=== PATIENT | female | born 1935 | race African-American/Black ===

== ENCOUNTER 2021-07-05 01:25 | Inpatient (IN) | payer MEDICARE, OTHER ==
[~2021-07-05] VITALS: Ht 162.6 cm; Wt 54.9 kg
--- NOTE | 2021-07-05 01:32 | NUR ---
BIB [facility] FROM [facility] C/O SOB AND FEELING WARM. PT IS NON VERBAL. 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 PATIENT NON VERBAL, AND 95% ON ROOM AIR. PLACED PATIENT IN BED 06 ON MONITOR AND POX.
--- NOTE | 2021-07-05 01:33 | NUR ---
PT AWAKE AND NONVERBAL. PT NOTED WITH GTUBE TO LLQ; INTACT. F/C INTACT. WOUND VAC TO RIGHT LOWER BACK AND DRAINING.
--- NOTE | 2021-07-05 01:40 | NUR ---
ER AT BEDSIDE FOR EVAL
--- NOTE | 2021-07-05 01:47 | NUR ---
EMT AT BEDSIDE FOR EKG
--- NOTE | 2021-07-05 01:55 | NUR ---
ER ASSEMBLER ADJUSTER @ BEDSIDE
--- NOTE | 2021-07-05 01:55 | NUR ---
BLOOD COLLECTED AND SENT TO LAB
[2021-07-05] MEDS ORDERED: VANCOMYCIN 1 GM in IV D5W 250 ML IV ONE (02:00)
[2021-07-05] MEDS ORDERED: IV NS 0.9% 2,000 ML IV ONE (02:00)
[2021-07-05] MEDS ORDERED: CEFEPIME 1 GM in IV D5W 50 ML IV ONE (02:00)
[2021-07-05] MEDS ORDERED: ACETAMINOPHEN 650 MG/SUPP.RECT RC ONE ×2 (02:00→02:01)
--- NOTE | 2021-07-05 02:00 | NUR ---
R HAND #20G S/L; PATENT AND INTACT. COVID ANTIGEN SWAB COLLECTED AND SENT TO LAB
--- NOTE | 2021-07-05 02:00 | NUR ---
MRSA SWAB COLLECTED AND SENT TO LAB. PATIENT'S BELONGINGS LIST DONE.
[2021-07-05] MEDS ORDERED: CEFEPIME 1 GM VIAL ONE (02:01)
--- NOTE | 2021-07-05 02:01 | NUR ---
SET O TYPE OPERATOR AT PT'S BEDSIDE
[2021-07-05 02:27] LABS: CALCIUM, SERUM 9.2 mg/dL (8.5-10.1); CARBON DIOXIDE 29 mmol/L (21-32); CHLORIDE 110 mmol/L (98-107); CREATININE 0.5 mg/dL (0.6-1.3); GLUCOSE 147 mg/dL (74-106); POTASSIUM 4.8 mmol/L (3.5-5.1); SODIUM SERUM 147 mmol/L (136-145); UREA NITROGEN, BLOOD 27 mg/dL (7-18)
--- NOTE | 2021-07-05 02:29 | NUR ---
URINE COLLECTED AND SENT TO LAB
[2021-07-05] MEDS ORDERED: VANCOMYCIN 1 GM VIAL ONE (02:30)
--- NOTE | 2021-07-05 02:39 | NUR ---
BM NOTED. ADLS DONE; PT KEPT CLEAN AND DRY.
[2021-07-05 02:41] LABS: ALANINE AMINOTRANSFERASE 64 U/L (12-78); ALBUMIN 1.9 g/dL (3.4-5.0); ALKALINE PHOSPHATASE 137 U/L (46-116); ASPARTATE AMINOTRANSFERASE 67 U/L (15-37); BASOPHILS # (AUTO) 0.1 K/uL (0.0-0.2); BASOPHILS % (AUTO) 0.7 % (0.0-2.0); BILIRUBIN,DIRECT 0.1 mg/dL (0.0-0.2); BILIRUBIN,TOTAL 0.3 mg/dL (0.2-1.0); EOSINOPHILS % (AUTO) 1.6 % (0.0-6.0); HEMATOCRIT 29 % (33-45); HEMOGLOBIN 8.8 g/dL (11.5-14.8); LYMPHOCYTES # (AUTO) 1.9 K/uL (0.8-4.8); LYMPHOCYTES % (AUTO) 12.5 % (20.0-44.0); MEAN CORPUSCULAR HGB CONC 30 g/dl (31.0-36.0); MEAN CORPUSCULAR VOLUME 69 fL (82-100); MONOCYTES # (AUTO) 1.1 K/uL (0.1-1.30); MONOCYTES % (AUTO) 7.6 % (2.0-12.0); NEUTROPHILS # (AUTO) 11.6 K/uL (1.8-8.9); NEUTROPHILS % (AUTO) 77.6 % (43.0-81.0); PLATELET COUNT (AUTO) 758 K/uL (150-450); RED BLOOD CELL COUNT(AUTO) 4.24 MIL/uL (4.0-5.2); TOTAL PROTEIN, SERUM 8.2 g/dL (6.4-8.2); WHITE BLOOD COUNT (AUTO) 14.9 K/uL (4.3-11.0)
--- NOTE | 2021-07-05 02:41 | NUR ---
COVID SWAB DONE AND SENT TO LAB
[2021-07-05 03:25] LABS: BILIRUBIN,URINE NEGATIVE (NEGATIVE); COLOR,URINE YELLOW (YELLOW); LEUKOCYTE ESTERASE ,URINE LARGE (NEGATIVE); NITRITE, URINE POSITIVE (NEGATIVE); PH,URINE 5.5 (5.0-8.0); PROTEIN,URINE 100 mg/dl (NEGATIVE); UGLUCOSE NEGATIVE (NEGATIVE)
--- NOTE | 2021-07-05 04:47 | NUR ---
RN NOTE REPORT RECEIVED BY JOYCE JIN FOR COLTEN.
--- NOTE | 2021-07-05 04:48 | NUR ---
REPORT GIVEN TO SENG FOR COLTEN
[2021-07-05 05:15] VITALS: BP 129/67
--- NOTE | 2021-07-05 05:15 | NUR ---
RN NOTE PT TRANSFERRED FROM ER VIA GURNEY. PT IS ON ROOM AIR SHOWING NO S/S OF RESP DISTRESS/SOB. BREATHING EVEN AND UNLABORED. PT IS NON-VERBAL. ON MATRIX INSPECTOR SHOWING SINUS ARRHYTHMIA WITH PVC'S. HITCHCOCK CATH AND WOUND EVAC NOTED. IV ACCESS NOTED ON RIGHT HAND #20. LINE FLUSHED, PATENT, AND INTACT WITH NO SIGNS OF INFILTRATION. ALL SAFETY MEASURES IMPLEMENTED. WILL CONTINUE TO MONITOR AND ASSESS FOR ANY CHANGES.
--- NOTE | 2021-07-05 05:16 | NUR ---
PT TRANSFERRED TO [facility] VIA ACLS PROTOCOL. VSS. PT TOLERATED TRANSFER WELL.
[2021-07-05] MEDS ORDERED: ONDANSETRON HCL/PF 4 MG/2 ML VIAL IVP PRN (06:30)
[2021-07-05] MEDS ORDERED: ACETAMINOPHEN 325 MG TABLET PO PRN (06:30)
[2021-07-05] MEDS ORDERED: ZOLPIDEM TARTRATE 5 MG TABLET PO PRN (06:30)
[2021-07-05] MEDS ORDERED: Z GUARD REMEDY 4 OZ OINT TP PRN (06:30)
[2021-07-05] MEDS ORDERED: MAGNESIUM HYDROXIDE 30 ML UDC PO PRN (06:30)
[2021-07-05] MEDS ORDERED: MAG HYDROX/AL HYDROX/SIMETH 30 ML UDC PO PRN (06:30)
[2021-07-05] MEDS: PANTOPRAZOLE 40 MG TABLET.DR PO SCH (07:30)
[2021-07-05 08:00] VITALS: BP 97/54
[2021-07-05] MEDS ORDERED: AMIN30LI2 GT (08:03)
[2021-07-05] MEDS ORDERED: APIX2.5T GT (08:03)
[2021-07-05] MEDS ORDERED: METO25TA3 GT (08:03)
[2021-07-05] MEDS ORDERED: ASCO-495 GT (08:03)
[2021-07-05] MEDS ORDERED: ACET650T10 GT (08:03)
[2021-07-05] MEDS ORDERED: ALBU2.5V13 IH (08:03)
[2021-07-05] MEDS ORDERED: NUTR1PAC14 GT (08:03)
[2021-07-05] MEDS ORDERED: MULT-754 GT (08:03)
[2021-07-05] MEDS ORDERED: ACET650S11 RC (08:03)
[2021-07-05] MEDS ORDERED: FERR300L GT (08:03)
[2021-07-05] MEDS ORDERED: LEVO25TA9 GT (08:03)
--- NOTE | 2021-07-05 08:06 | NUR ---
RN OPENING NOTE RECEIVED PATIENT RESTING IN BED. PT IS ON ROOM AIR SHOWING NO S/S OF RESP DISTRESS/SOB. BREATHING EVEN AND UNLABORED. PT IS NON-VERBAL. ON TUTORING MANAGER . HITCHCOCK CATH AND WOUND EVAC NOTED. IV ACCESS NOTED ON RIGHT HAND #20. LINE FLUSHED, PATENT, AND INTACT WITH NO SIGNS OF INFILTRATION. ALL SAFETY MEASURES IMPLEMENTED. CALL LIGHT WITHIN REACH, 2 SIDE RAILS UP, BED LOCKED IN THE LOWEST POSITION.
[2021-07-05 08:45] LABS: BACTERIA,URINE 3+ /HPF (None Seen); RBC,URINE 51-80 /HPF (0-2); SQUAMOUS EPITHELIAL CELL,UR Few /HPF (None Seen); WBC,URINE 51-80 /HPF (0-3)
[2021-07-05 09:16] LABS: BAND % (MANUAL) 2 % (0.0-5.0); EOSINOPHILS % (MANUAL) 1 % (0-4); LYMPHOCYTES % (MANUAL) 16 % (16-48); MONOCYTES % (MANUAL) 9 % (0-11.0); NEUTROPHILS % (MANUAL) 72 (42-76)
[2021-07-05] MEDS: CEFEPIME 2 GM in IV D5W 100 ML IV SCH ×2 (10:24→20:52)
--- NOTE | 2021-07-05 10:26 | NUR ---
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 RECOMMENDATIONS MADE FOR SKIN PROTECTION. DISCUSSED WITH NURSING STAFF. SURGICAL AND DPM CONSULTS CALLED TO DR MALONE AND DR HAMPAPUR. PCAE IN AGREEMENT WITH PLAN OF CARE.
[2021-07-05] MEDS: ENOXAPARIN SODIUM 40 MG/0.4 ML DISP.SYRIN SQ SCH (10:27)
--- NOTE | 2021-07-05 11:48 | NUR ---
RN NOTE SPOKE WITH SNF REGARDING PATIENTS G TUBE FEEDING. PATIENT WAS RECEIVING ISOSOURCE 1.5 70ML/HR X 16. SPOKE WITH DIETARY FACILITY DOES NOT CARRY ISOSOURCE BUT IT CAN BE REPLACED WITH JEVITY 1.2 20ML/HR. MAKE PROVIDER LUIS INTERIANO AWARE, RECEIVED AUTHORIZATION TO PLACE ORDER. ORDER PLACED.
[2021-07-05 12:00] VITALS: BP 105/55
[2021-07-05] MEDS ORDERED: JEVITY 1.2 CAL 1,000 ML BOTTLE GT PRN (12:00)
[2021-07-05] MEDS ORDERED: ACETAMINOPHEN 650 MG/SUPP.RECT RC PRN (15:30)
[2021-07-05] MEDS ORDERED: ALBUTEROL SULFATE 8 GM HFA.AER.AD IH PRN (15:30)
[2021-07-05 16:00] VITALS: BP 105/56
[2021-07-05] MEDS: ARGININE/GLUTAMINE/CALCIUM BMB 1 EACH POWD.PACK GT SCH (17:00)
[2021-07-05] MEDS: PROSOURCE / PROSTAT (PYXIS) 30 ML UDC GT SCH ×2 (18:05→18:06)
[2021-07-05] MEDS: APIXABAN 2.5 MG TABLET GT SCH (18:05)
[2021-07-05] MEDS: JEVITY 1.2 CAL 1,000 ML BOTTLE GT SCH (18:07)
--- NOTE | 2021-07-05 19:22 | NUR ---
RN CLOSING NOTE RECEIVED PATIENT RESTING IN BED. PT IS ON ROOM AIR SHOWING NO S/S OF RESP DISTRESS/SOB. BREATHING EVEN AND UNLABORED. PT IS NON-VERBAL. ON ORTHOTIST/PROSTHETIST . HITCHCOCK CATH AND WOUND EVAC NOTED. IV ACCESS NOTED ON RIGHT HAND #20. LINE FLUSHED, PATENT, AND INTACT WITH NO SIGNS OF INFILTRATION. ALL SAFETY MEASURES IMPLEMENTED. CALL LIGHT WITHIN REACH, 2 SIDE RAILS UP, BED LOCKED IN THE LOWEST POSITION. WILL ENDORSE TO NIGHT NURSE FOR COLTEN
--- NOTE | 2021-07-05 19:34 | NUR ---
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 GIVEN TO PHARMACY TO REVIEW. RECOMMENDED FOR WOUND CARE NURSE TO REVIEW REGARDING APPROVAL TO USE.
--- NOTE | 2021-07-05 19:51 | NUR ---
RN NOTE RECEIVED PATIENT IN BED, AWAKE WITH EYES OPEN, NON-VERBAL. UNABLE TO FOLLOW COMMANDS. CALM. BREATHING EVEN AND UNLABORED. TOLERATING ROOM AIR. NO RESPIRATORY DISTRESS NOTED. SKIN WARM AND DRY, NOTED WITH LEFT UPPER ARM MIDLINE AND RIGHT HAND PERIPHERAL IV 20G. CURRENTLY INFUSING 0.45 NS AT 75 CC/HR. NO INFILTRATION NOTED. NOTED WITH TUBE FEEDING VIA PEG TUBE, INFUSING JEVITY AT 55 CC/HR. NO RESIDUAL. ELEVATED HOB TO 40 DEGREES. NOTED WITH INDWELLING HITCHCOCK CATHETER, INTACT. NO HEMATURIA NOTED. DRAINING YELLOW URINE. NO GRIMACE/MOANING NOTED. ASSISTED WITH REPOSITIONING. BED LOW, IN LOCKED POSITION, CALL LIGHT WITHIN REACH.
[2021-07-05 20:00] VITALS: BP 93/51
[2021-07-05] MEDS: IV 1/2NS 1000 ML 1,000 ML IV PRN (20:28)
[2021-07-05] MEDS: METOPROLOL SUCCINATE 25 MG TAB.SR.24H GT SCH (20:56)
[2021-07-05] MEDS: VANCOMYCIN 1 GM in IV D5W 250 ML IV SCH (23:12)
[2021-07-05] MEDS ORDERED: DAKINS QUARTER STRENGTH (0.125%) 480 ML BOTTLE ONE (23:41)
[2021-07-05] MEDS: DAKINS QUARTER STRENGTH (0.125%) 480 ML BOTTLE TOP SCH (23:42)
[2021-07-06] VITALS: BP 102/51
[2021-07-06 04:00] VITALS: BP 111/51
[2021-07-06] MEDS: IV 1/2NS 1000 ML 1,000 ML IV PRN ×2 (06:02→21:22)
[2021-07-06 07:01] LABS: BASOPHILS % (AUTO) 0.2 % (0.0-2.0); HEMATOCRIT 30 % (33-45); HEMOGLOBIN 8.7 g/dL (11.5-14.8); LYMPHOCYTES # (AUTO) 1.4 K/uL (0.8-4.8); LYMPHOCYTES % (AUTO) 9.9 % (20.0-44.0); MEAN CORPUSCULAR HGB CONC 29 g/dl (31.0-36.0); MEAN CORPUSCULAR VOLUME 70 fL (82-100); MONOCYTES # (AUTO) 0.9 K/uL (0.1-1.30); MONOCYTES % (AUTO) 6.5 % (2.0-12.0); NEUTROPHILS # (AUTO) 11.4 K/uL (1.8-8.9); NEUTROPHILS % (AUTO) 81.4 % (43.0-81.0); PLATELET COUNT (AUTO) 614 K/uL (150-450); RED BLOOD CELL COUNT(AUTO) 4.27 MIL/uL (4.0-5.2); WHITE BLOOD COUNT (AUTO) 13.9 K/uL (4.3-11.0)
[2021-07-06 07:23] LABS: ALANINE AMINOTRANSFERASE 54 U/L (12-78); ALBUMIN 1.6 g/dL (3.4-5.0); ALKALINE PHOSPHATASE 124 U/L (46-116); ASPARTATE AMINOTRANSFERASE 36 U/L (15-37); BILIRUBIN,DIRECT 0.1 mg/dL (0.0-0.2); BILIRUBIN,TOTAL 0.3 mg/dL (0.2-1.0); CALCIUM, SERUM 8.4 mg/dL (8.5-10.1); CARBON DIOXIDE 29 mmol/L (21-32); CHLORIDE 108 mmol/L (98-107); CREATININE 0.5 mg/dL (0.6-1.3); GLUCOSE 124 mg/dL (74-106); MAGNESIUM 2.4 mg/dL (1.8-2.4); PHOSPHORUS 3.9 mg/dL (2.5-4.9); POTASSIUM 3.8 mmol/L (3.5-5.1); SODIUM SERUM 143 mmol/L (136-145); UREA NITROGEN, BLOOD 21 mg/dL (7-18)
[2021-07-06 08:00] VITALS: BP 114/59
[2021-07-06] MEDS ORDERED: [UNRECOGNIZED DRUG - OTHER] XX SCH (09:00)
[2021-07-06] MEDS ORDERED: PROSTAT (PYXIS) 30 ML UDC GT SCH (09:00)
[2021-07-06] MEDS: MULTIVITAMINS,THERAGRAN 1 UDTAB TABLET GT SCH (09:14)
[2021-07-06] MEDS: ACETAMINOPHEN 650 MG/20.3 ML UDC GT SCH (09:14)
[2021-07-06] MEDS: ASCORBIC ACID 500 MG TABLET GT SCH (09:14)
[2021-07-06] MEDS: METOPROLOL SUCCINATE 25 MG TAB.SR.24H GT SCH ×2 (09:14→20:41)
[2021-07-06] MEDS: FERROUS SULFATE UDC 300 MG/5 ML UDC GT SCH (09:17)
[2021-07-06] MEDS: LEVOTHYROXINE SODIUM 88 MCG TABLET GT SCH (09:17)
[2021-07-06] MEDS: PANTOPRAZOLE 40 MG TABLET.DR PO SCH (09:17)
[2021-07-06] MEDS: DAKINS QUARTER STRENGTH (0.125%) 480 ML BOTTLE TOP SCH (09:18)
[2021-07-06] MEDS: CEFEPIME 2 GM in IV D5W 100 ML IV SCH ×2 (09:18→20:43)
[2021-07-06] MEDS: APIXABAN 2.5 MG TABLET GT SCH ×2 (09:20→17:58)
[2021-07-06] MEDS: ENOXAPARIN SODIUM 40 MG/0.4 ML DISP.SYRIN SQ SCH (09:21)
[2021-07-06] MEDS: ARGININE/GLUTAMINE/CALCIUM BMB 1 EACH POWD.PACK GT SCH ×2 (11:36→17:57)
[2021-07-06] MEDS: PROSOURCE / PROSTAT (PYXIS) 30 ML UDC GT SCH ×2 (11:36→17:57)
[2021-07-06 12:00] VITALS: BP 103/77
[2021-07-06 16:00] VITALS: BP 97/52
[2021-07-06] MEDS: JEVITY 1.2 CAL 1,000 ML BOTTLE GT SCH (19:05)
--- NOTE | 2021-07-06 19:29 | NUR ---
RN CLOSING NOTE PATIENT RESTING IN BED. ON ROOM AIR SHOWING NO S/S OF RESP DISTRESS. PT IS NON-VERBAL. ON [employer] STORAGE CLERK NOTED WITH ST/SR THIS SHIFT. HITCHCOCK CATH AND WOUND EVAC NOTED. IV ACCESS NOTED ON RIGHT HAND #20.AND JOSE MIDLINE 18 FLUSHED, PATENT, AND INTACT WITH NO SIGNS OF INFILTRATION. ALL SAFETY MEASURES IMPLEMENTED. DUE MEDICATIONS GIVEN, MORNING CARE RENDERED. NEEDS ATTENDED.
[2021-07-06 20:00] VITALS: BP 97/52
--- NOTE | 2021-07-06 20:22 | NUR ---
RN NOTE RECEIVED PATIENT IN BED, SLEEPING, AROUSABLE TO NAME AND TOUCH. NON-VERBAL, UNABLE TO FOLLOW COMMANDS. BREATHING EVEN AND UNLABORED. TOLERATING ROOM AIR. NO RESPIRATORY DISTRESS NOTED. SKIN WARM AND DRY. NOTED WITH LEFT UPPER ARM MIDLINE, INFUSING 0.4 NS AT 75 CC/HR. NO INFILTRATION NOTED. NOTED WITH RIGHT HAND PERIPHERAL IV 20G. NOTED WITH G-TUBE FEEDING OF JEVITY AT 55 CC/HR. NO RESIDUAL. HOB ELEVATED 40 DEGREES. NOTED WITH INDWELLING HITCHCOCK CATHETER, INTACT, NO HEMATURIA, DRAINING YELLOW URINE. NO FACIAL GRIMACE/MOANING. ASSISTED WITH TURNING AND REPOSITIONING. BED LOW, IN LOCKED POSITION, CALL LIGHT WITHIN EACH.
[2021-07-06] MEDS ORDERED: ENOXAPARIN SODIUM 40 MG/0.4 ML DISP.SYRIN SQ SCH (21:00)
[2021-07-06] MEDS: VANCOMYCIN 1 GM in IV D5W 250 ML IV SCH (23:46)
[2021-07-07] VITALS: BP 99/52
[2021-07-07 04:00] VITALS: BP 107/59
--- NOTE | 2021-07-07 07:23 | NUR ---
RN OPENING NOTES RECEIVED PATIENT IN BED, AWAKE, NON-VERBAL. NO SIGNS OF ACUTE DISTRESS NOTED. ON ROOM AIR, TOLERATING WELL, NO SOB NOTED, BREATHING EVEN AND UNLABORED. ON TELE MONITOR SHOWING CONTROLLED AFIB @97. WITH IV ACCESS ON JOSE MIDLINE, INTACT WITH 1/2 NS @75CC/HR RUNNING. WITH F/C INTACT, DRAINING CLEAR YELLOW URINE. G-TUBE INTACT AND PATENT, WITH GT FEEDING OF JEVITY @55ML/HR, TOLERATED WELL. ASPIRATIONS PRECAUTIONS OBSERVED. HOB ELEVATED AT ALL TIMES. SAFETY MEASURES IN PLACE. WILL CONTINUE TO MONITOR.
[2021-07-07 07:36] LABS: CALCIUM, SERUM 8.4 mg/dL (8.5-10.1); CARBON DIOXIDE 25 mmol/L (21-32); CHLORIDE 105 mmol/L (98-107); CREATININE 0.5 mg/dL (0.6-1.3); GLUCOSE 90 mg/dL (74-106); POTASSIUM 3.6 mmol/L (3.5-5.1); SODIUM SERUM 139 mmol/L (136-145); UREA NITROGEN, BLOOD 19 mg/dL (7-18)
[2021-07-07 08:00] VITALS: BP 99/58
[2021-07-07 08:04] LABS: BASOPHILS % (AUTO) 0.1 % (0.0-2.0); EOSINOPHILS % (AUTO) 2.4 % (0.0-6.0); HEMATOCRIT 26 % (33-45); HEMOGLOBIN 7.7 g/dL (11.5-14.8); LYMPHOCYTES # (AUTO) 1.5 K/uL (0.8-4.8); LYMPHOCYTES % (AUTO) 13.9 % (20.0-44.0); MEAN CORPUSCULAR HGB CONC 30 g/dl (31.0-36.0); MEAN CORPUSCULAR VOLUME 69 fL (82-100); MONOCYTES # (AUTO) 0.9 K/uL (0.1-1.30); NEUTROPHILS # (AUTO) 8.1 K/uL (1.8-8.9); NEUTROPHILS % (AUTO) 75.6 % (43.0-81.0); PLATELET COUNT (AUTO) 637 K/uL (150-450); RED BLOOD CELL COUNT(AUTO) 3.74 MIL/uL (4.0-5.2); WHITE BLOOD COUNT (AUTO) 10.7 K/uL (4.3-11.0)
[2021-07-07] MEDS: PANTOPRAZOLE 40 MG TABLET.DR PO SCH (08:56)
[2021-07-07] MEDS: LEVOTHYROXINE SODIUM 88 MCG TABLET GT SCH (08:57)
[2021-07-07] MEDS: ACETAMINOPHEN 650 MG/20.3 ML UDC GT SCH (08:57)
[2021-07-07] MEDS: MULTIVITAMINS,THERAGRAN 1 UDTAB TABLET GT SCH (08:57)
[2021-07-07] MEDS: APIXABAN 2.5 MG TABLET GT SCH ×2 (08:57→16:46)
[2021-07-07] MEDS: FERROUS SULFATE UDC 300 MG/5 ML UDC GT SCH (08:57)
[2021-07-07] MEDS: ASCORBIC ACID 500 MG TABLET GT SCH (08:58)
[2021-07-07] MEDS: ARGININE/GLUTAMINE/CALCIUM BMB 1 EACH POWD.PACK GT SCH ×2 (08:59→16:45)
[2021-07-07] MEDS: PROSOURCE / PROSTAT (PYXIS) 30 ML UDC GT SCH ×2 (08:59→16:45)
[2021-07-07] MEDS: METOPROLOL SUCCINATE 25 MG TAB.SR.24H GT SCH ×2 (08:59→21:00)
[2021-07-07] MEDS ORDERED: [UNRECOGNIZED DRUG - OTHER] XX SCH (09:00)
[2021-07-07] MEDS: CEFEPIME 2 GM in IV D5W 100 ML IV SCH ×2 (09:16→21:16)
[2021-07-07] MEDS: DAKINS QUARTER STRENGTH (0.125%) 480 ML BOTTLE TOP SCH (09:19)
[2021-07-07 12:00] VITALS: BP 99/54
[2021-07-07] MEDS: IV 1/2NS 1000 ML 1,000 ML IV PRN (14:02)
[2021-07-07] MEDS: JEVITY 1.2 CAL 1,000 ML BOTTLE GT SCH (14:07)
[2021-07-07 16:00] VITALS: BP 99/64
[2021-07-07] MEDS: [UNRECOGNIZED DRUG - OTHER] XX SCH (16:20)
[2021-07-07] MEDS: VANCOMYCIN 1 GM in IV D5W 250 ML IV SCH (17:16)
--- NOTE | 2021-07-07 18:56 | NUR ---
RN CLOSING NOTES PATIENT IN BED, ASLEEP.NO SIGNS OF ACUTE DISTRESS NOTED. REMAINS ON ROOM AIR, TOLERATING WELL, NO SOB NOTED, BREATHING EVEN AND UNLABORED. ON TELE MONITOR SHOWING CONTROLLED AFIB @98. WITH IV ACCESS ON JOSE MIDLINE, INTACT WITH 1/2 NS @75CC/HR RUNNING. WITH F/C INTACT, DRAINING CLEAR YELLOW URINE. G-TUBE INTACT AND PATENT, WITH GT FEEDING OF JEVITY @55ML/HR, TOLERATED WELL. WOUND TREATMENT DONE. TURNED AND REPOSITIONED. ASPIRATIONS PRECAUTIONS OBSERVED. HOB ELEVATED AT ALL TIMES. SAFETY MEASURES IN PLACE. WILL ENDORSE TO NEXT SHIFT.
--- NOTE | 2021-07-07 19:33 | NUR ---
RN NOTES RECEIVED PT FOR CONTINUITY OF CARE. PATIENT NON VERBAL, IN NO S/SX OF ACUTE DISTRESS AT THIS TIME; CURRENTLY ON ROOM AIR; WITH 02 SAT >95% AT THIS TIME. WITH IV ACCESS ON L UA MIDLINE#18 AND R HAND #20 BOTH PATENT, INTACT AND FLUSHING WELL; NO S/S OF INFECTION OR INFILTRATION. WITH IV FLUID RUNNING ORDERED. WITH GTUBE FEEDING RUNNING PRESCRIBED. WILL ENSURE SAFETY MEASURES WITHIN THE SHIFT. PATIENT BED ALARM IS ON. HEAD OF BED ELEVATED. BED IS LOCKED, IN LOWEST POSITION AND SIDE RAILS UP. CALL LIGHT WITHIN REACH OF THE PATIENT. APPLICABLE ISOLATION PRECAUTIONS IN PLACE. WILL CONTINUE TO MONITOR AND REASSESS FOR ANY CHANGES AND WILL CARRY OUT ANY ONGOING AND ACTIVE MD ORDER.
[2021-07-07 20:00] VITALS: BP 96/55
[2021-07-08] VITALS: BP 97/56
[2021-07-08 04:00] VITALS: BP 96/51
--- NOTE | 2021-07-08 04:00 | NUR ---
RN NOTES NO NOTED CHANGES IN PATIENT CONDITION AT THIS TIME; PATIENT VITALS STABLE, NO SIGNS OF ACUTE RESPIRATORY DISTRESS. AM PATIENT CARE RENDERED AND TURNING AND REPOSITIONING DONE Q2H.WILL CONTINUE TO MONITOR AND REASSESS FOR ANY CHANGES THROUGHOUT THE SHIFT.
--- NOTE | 2021-07-08 06:49 | NUR ---
RN CLOSING NOTE: PATIENT REMAINS IN ROOM IN NO SIGNS OF RESPIRATORY DISTRESS, PATIENT STILL ON ROOM AIR;TOLERATING WELL SATURATING @ >95% SP02. SAFETY MEASURES IMPLEMENTED, BED IN LOWEST POSITION, LOCKED, SIDE RAILS UP, CALL LIGHT WITHIN REACH. ALL NEEDS AND ORDERS ADDRESSED DURING THE SHIFT. IV ACCESS MAINTAINED INTACT, SECURED AND FLUSHING WELL. ALL DUE MEDS GIVEN ORDERED & SCHEDULED ; PATIENT TOLERATED WELL. PATIENT KEPT CLEAN AND COMFORTABLE WITHIN THE SHIFT. PATIENT ENDORSED TO INCOMING SHIFT RN WITH STABLE VITAL SIGN AND FOR CONTINUITY OF CARE.
[2021-07-08 08:00] VITALS: BP 90/50
--- NOTE | 2021-07-08 08:02 | NUR ---
RN OPENING NOTE Patient in bed, awake. A/O x 1, non-verbal. On room air, breathing evenly and unlabored. No SOB or s/s of distress noted. IV access on JOSE midline infusing NS at 75 ml/hr and Right hand #20, SL intact and patent. On tele monitoring showing Sinus tachycardia, HR 102. G-tube in place running Jevity at 55 cc/hr. Fox catheter in place draining to a yellow colored urine. Safety precautions in place: bed in low, locked position; siderails up x 2; call light within reach. Will continue to monitor.
[2021-07-08 08:14] LABS: BASOPHILS % (AUTO) 0.3 % (0.0-2.0); EOSINOPHILS % (AUTO) 3.2 % (0.0-6.0); HEMATOCRIT 25 % (33-45); HEMOGLOBIN 7.5 g/dL (11.5-14.8); LYMPHOCYTES # (AUTO) 1.5 K/uL (0.8-4.8); LYMPHOCYTES % (AUTO) 17.6 % (20.0-44.0); MEAN CORPUSCULAR HGB CONC 30 g/dl (31.0-36.0); MEAN CORPUSCULAR VOLUME 69 fL (82-100); MONOCYTES # (AUTO) 0.8 K/uL (0.1-1.30); NEUTROPHILS % (AUTO) 69.9 % (43.0-81.0); PLATELET COUNT (AUTO) 630 K/uL (150-450); RED BLOOD CELL COUNT(AUTO) 3.61 MIL/uL (4.0-5.2); WHITE BLOOD COUNT (AUTO) 8.7 K/uL (4.3-11.0)
[2021-07-08 08:46] LABS: CALCIUM, SERUM 7.8 mg/dL (8.5-10.1); CARBON DIOXIDE 26 mmol/L (21-32); CHLORIDE 107 mmol/L (98-107); CREATININE 0.5 mg/dL (0.6-1.3); GLUCOSE 105 mg/dL (74-106); POTASSIUM 3.3 mmol/L (3.5-5.1); SODIUM SERUM 142 mmol/L (136-145); UREA NITROGEN, BLOOD 20 mg/dL (7-18)
[2021-07-08] MEDS: PANTOPRAZOLE 40 MG TABLET.DR PO SCH (08:56)
[2021-07-08] MEDS: ASCORBIC ACID 500 MG TABLET GT SCH (08:56)
[2021-07-08] MEDS: FERROUS SULFATE UDC 300 MG/5 ML UDC GT SCH (08:56)
[2021-07-08] MEDS: LEVOTHYROXINE SODIUM 88 MCG TABLET GT SCH (08:56)
[2021-07-08] MEDS: MULTIVITAMINS,THERAGRAN 1 UDTAB TABLET GT SCH (08:56)
[2021-07-08] MEDS: ACETAMINOPHEN 650 MG/20.3 ML UDC GT SCH (08:57)
[2021-07-08] MEDS: APIXABAN 2.5 MG TABLET GT SCH ×2 (08:58→17:35)
[2021-07-08] MEDS: [UNRECOGNIZED DRUG - OTHER] XX SCH (09:00)
[2021-07-08] MEDS: METOPROLOL SUCCINATE 25 MG TAB.SR.24H GT SCH ×2 (09:00→21:00)
[2021-07-08] MEDS: PROSOURCE / PROSTAT (PYXIS) 30 ML UDC GT SCH ×2 (09:02→17:34)
[2021-07-08] MEDS: ARGININE/GLUTAMINE/CALCIUM BMB 1 EACH POWD.PACK GT SCH ×2 (09:02→17:35)
[2021-07-08] MEDS: CEFEPIME 2 GM in IV D5W 100 ML IV SCH ×2 (09:06→21:24)
[2021-07-08] MEDS: DAKINS QUARTER STRENGTH (0.125%) 480 ML BOTTLE TOP SCH (09:07)
[2021-07-08] MEDS ORDERED: POTASSIUM CHLORIDE 20 MEQ POWDER PACKET GT ONE ×2 (10:00→10:30)
[2021-07-08] MEDS: IV 1/2NS 1000 ML 1,000 ML IV PRN (10:17)
[2021-07-08] MEDS: JEVITY 1.2 CAL 1,000 ML BOTTLE GT SCH (12:52)
[2021-07-08] MEDS: VANCOMYCIN 1 GM in IV D5W 250 ML IV SCH (13:15)
[2021-07-08 16:00] VITALS: BP 92/56
[2021-07-08] MEDS: SOD FERRIC GLUC 125 MG in IV NS 0.9% 100 ML IV SCH (16:21)
--- NOTE | 2021-07-08 19:00 | NUR ---
MS RN CLOSING NOTE Patient in bed, resting comfortably. A/O x 1, non-verbal. Stable on room air, breathing evenly and unlabored. No SOB or s/s of distress noted. IV access on JOSE midline infusing NS at 75 ml/hr and Right hand #20, SL intact and patent. G-tube in place running Jevity at 55 cc/hr. Fox catheter in place draining to a yellow colored urine with an output of 1000 cc. Patient kept clean and dry. Due meds given. Wound care done, as ordered. Safety precautions maintained: bed in low, locked position; siderails up x 2; call light within reach. Will endorse to warehouse supervisor 3rd shift nurse for COLTEN.
--- NOTE | 2021-07-08 19:38 | NUR ---
RECEIVED PT FOR CONTINUITY OF CARE. PATIENT NON VERBAL, IN BED RESTING COMFORTABLY IN NO S/SX OF ACUTE DISTRESS AT THIS TIME; CURRENTLY ON ROOM AIR; WITH 02 SAT 95% AT THIS TIME. WITH IV ACCESS ON L UA MIDLINE#18 AND R HAND #20 BOTH PATENT, INTACT AND FLUSHING WELL; NO S/S OF INFECTION OR INFILTRATION. WITH IV FLUID RUNNING ORDERED. WITH GTUBE FEEDING RUNNING PRESCRIBED. WILL ENSURE SAFETY MEASURES WITHIN THE SHIFT. PATIENT BED ALARM IS ON. HEAD OF BED ELEVATED. BED IS LOCKED, IN LOWEST POSITION AND SIDE RAILS UP. CALL LIGHT WITHIN REACH OF THE PATIENT. APPLICABLE ISOLATION PRECAUTIONS IN PLACE. WILL CONTINUE TO MONITOR AND REASSESS FOR ANY CHANGES AND WILL CARRY OUT ANY ONGOING AND ACTIVE MD ORDER.
[2021-07-08 20:00] VITALS: BP 102/56
[2021-07-08 20:08] LABS: OCCULT BLOOD STOOL NEGATIVE (NEGATIVE)
[2021-07-09 04:00] VITALS: BP 115/55
[2021-07-09] MEDS: VANCOMYCIN 1 GM in IV D5W 250 ML IV SCH ×2 (05:43→23:20)
[2021-07-09] MEDS: IV 1/2NS 1000 ML 1,000 ML IV PRN (05:45)
--- NOTE | 2021-07-09 06:34 | NUR ---
RN CLOSING NOTE: PATIENT REMAINS IN ROOM IN NO SIGNS OF RESPIRATORY DISTRESS, PATIENT STILL ON ROOM AIR;TOLERATING WELL SATURATING @95% SP02. SAFETY MEASURES IMPLEMENTED, BED IN LOWEST POSITION, LOCKED, SIDE RAILS UP, CALL LIGHT WITHIN REACH. ALL NEEDS AND ORDERS ADDRESSED DURING THE SHIFT. IV ACCESS MAINTAINED INTACT, SECURED AND FLUSHING WELL. ALL DUE MEDS GIVEN ORDERED & SCHEDULED ; PATIENT TOLERATED WELL. PATIENT KEPT CLEAN AND COMFORTABLE WITHIN THE SHIFT. PATIENT ENDORSED TO INCOMING SHIFT RN WITH STABLE VITAL SIGN AND FOR CONTINUITY OF CARE.
[2021-07-09 07:13] LABS: BASOPHILS % (AUTO) 0.2 % (0.0-2.0); EOSINOPHILS % (AUTO) 4.3 % (0.0-6.0); HEMATOCRIT 24 % (33-45); HEMOGLOBIN 7.4 g/dL (11.5-14.8); LYMPHOCYTES # (AUTO) 1.4 K/uL (0.8-4.8); LYMPHOCYTES % (AUTO) 14.5 % (20.0-44.0); MEAN CORPUSCULAR HGB CONC 31 g/dl (31.0-36.0); MEAN CORPUSCULAR VOLUME 69 fL (82-100); MONOCYTES # (AUTO) 0.9 K/uL (0.1-1.30); MONOCYTES % (AUTO) 9.2 % (2.0-12.0); NEUTROPHILS % (AUTO) 71.8 % (43.0-81.0); PLATELET COUNT (AUTO) 621 K/uL (150-450); RED BLOOD CELL COUNT(AUTO) 3.51 MIL/uL (4.0-5.2); WHITE BLOOD COUNT (AUTO) 9.7 K/uL (4.3-11.0)
[2021-07-09 07:39] LABS: CALCIUM, SERUM 7.7 mg/dL (8.5-10.1); CARBON DIOXIDE 26 mmol/L (21-32); CHLORIDE 106 mmol/L (98-107); CREATININE 0.5 mg/dL (0.6-1.3); GLUCOSE 159 mg/dL (74-106); POTASSIUM 3.7 mmol/L (3.5-5.1); SODIUM SERUM 140 mmol/L (136-145); UREA NITROGEN, BLOOD 22 mg/dL (7-18)
[2021-07-09] MEDS: PROSOURCE / PROSTAT (PYXIS) 30 ML UDC GT SCH ×2 (09:00→17:55)
[2021-07-09] MEDS: APIXABAN 2.5 MG TABLET GT SCH ×2 (09:00→17:56)
[2021-07-09] MEDS: DAKINS QUARTER STRENGTH (0.125%) 480 ML BOTTLE TOP SCH (09:00)
[2021-07-09] MEDS: ASCORBIC ACID 500 MG TABLET GT SCH (11:45)
[2021-07-09] MEDS: FERROUS SULFATE UDC 300 MG/5 ML UDC GT SCH (11:46)
[2021-07-09] MEDS: ACETAMINOPHEN 650 MG/20.3 ML UDC GT SCH (11:46)
[2021-07-09] MEDS: [UNRECOGNIZED DRUG - OTHER] XX SCH (11:46)
[2021-07-09] MEDS: LEVOTHYROXINE SODIUM 88 MCG TABLET GT SCH (11:47)
[2021-07-09] MEDS: MULTIVITAMINS,THERAGRAN 1 UDTAB TABLET GT SCH (11:47)
[2021-07-09] MEDS: PANTOPRAZOLE 40 MG TABLET.DR PO SCH (11:47)
[2021-07-09] MEDS: METOPROLOL SUCCINATE 25 MG TAB.SR.24H GT SCH ×2 (11:48→21:00)
[2021-07-09] MEDS: CEFEPIME 2 GM in IV D5W 100 ML IV SCH ×2 (11:49→22:00)
[2021-07-09 12:00] VITALS: BP 110/60
[2021-07-09] MEDS: SOD FERRIC GLUC 125 MG in IV NS 0.9% 100 ML IV SCH (14:53)
[2021-07-09] MEDS: ARGININE/GLUTAMINE/CALCIUM BMB 1 EACH POWD.PACK GT SCH ×2 (15:36→17:54)
--- NOTE | 2021-07-09 18:55 | NUR ---
RN CLOSING NOTES PATIENT IN BED RESTING EASY TO AROUSE, DID NOT SPEAK ANY WORDS DURING SHIFT, SON ARRIVED AND STATED ABOUT 35 DAYS AGO SHE DID SPEAK , SHE WAS ABLE TO NOD HEAD FOR YES AND NO SIMPLE QUESTIONS, IN NO SIGNS OF RESPIRATORY DISTRESS, NO SOB, PATIENT ON ROOM AIR SATURATING @96-98% SP02. SAFETY MEASURES IN PLACE - BED IN LOWEST POSITION, WHEELS LOCKED, 2 SIDE RAILS UP, CALL LIGHT WITHIN REACH. ALL NEEDS MET KEPT PT CLEAN DRY AND CHANGED, WOUND CARE IMPLEMENTED, ALL MD ORDERS CARRIED OUT AND PERFORMED DURING THE SHIFT, PATIENT ENDORSED TO ONCOMING SHIFT RN, PT HAD STABLE VITAL SIGN DURING ENTIRE AM SHIFT AND GTUBE PATENT FLUSHING EASY INTACT, F/C INTACT PATENT GRAVITY FLOWING URINE WELL, NO C/O PAIN AND NO DISTRESS NOTED.
[2021-07-09 20:00] VITALS: BP 98/54
[2021-07-09] MEDS: JEVITY 1.2 CAL 1,000 ML BOTTLE GT SCH (23:19)
[2021-07-10 04:00] VITALS: BP 103/54
[2021-07-10 07:14] LABS: CALCIUM, SERUM 8.3 mg/dL (8.5-10.1); CARBON DIOXIDE 27 mmol/L (21-32); CHLORIDE 107 mmol/L (98-107); CREATININE 0.5 mg/dL (0.6-1.3); GLUCOSE 87 mg/dL (74-106); POTASSIUM 3.9 mmol/L (3.5-5.1); SODIUM SERUM 142 mmol/L (136-145); UREA NITROGEN, BLOOD 24 mg/dL (7-18)
--- NOTE | 2021-07-10 07:48 | NUR ---
RN OPENING NOTES PATIENT IS AWAKE IN BED RESTING, A/O X1, NON-VERBAL. NO S/S OF PAIN NOTED AT THIS TIME. ON ROOM AIR, NO DISTRESS OR SHORTNESS OF BREATH NOTED. IV ACCESS JOSE MIDLINE WITH 1/2 NS AT 75ML/HR, AND R HAND INTACT, PATENT AND FLUSHING WELL. PATIENT HAVE HITCHCOCK CATHETER, IN PLACED AND DRAINING WELL. FALL AND SAFETY MEASURES IN PLACE, BED ALARM ON, BED IN LOW AND LOCK POSITION, CALL LIGHT AND TABLE WITHIN EASY REACH, SIDE RAIL UP X2. WILL CONTINUE TO MONITOR.
--- NOTE | 2021-07-10 07:55 | NUR ---
RN CLOSING NOTES, PATIENT RESTING IN BED, AT ROOM AIR , NO SOB/ NO SIGNS OF RESPIRATORY DISTRESS, WITH OPTIMAL O2 SAT LEVEL, NO SIGNIFICANT CHANGE IN CONDITION, WOUND TX DONE AND MEDICATIONS ADMINISTERED ORDERED, CALL LIGHT WITHIN REACH, ALL NEEDS PROVIDED, PATIENT KEPT CLEAN, WILL ENDORSE CONTINUITY OF CARE TO ONCOMING NURSE.
[2021-07-10 08:00] VITALS: BP 111/51
[2021-07-10 08:26] LABS: BASOPHILS % (AUTO) 0.2 % (0.0-2.0); EOSINOPHILS % (AUTO) 4.2 % (0.0-6.0); HEMATOCRIT 28 % (33-45); HEMOGLOBIN 8.1 g/dL (11.5-14.8); LYMPHOCYTES # (AUTO) 1.9 K/uL (0.8-4.8); LYMPHOCYTES % (AUTO) 16.4 % (20.0-44.0); MEAN CORPUSCULAR HGB CONC 29 g/dl (31.0-36.0); MEAN CORPUSCULAR VOLUME 70 fL (82-100); MONOCYTES # (AUTO) 1.2 K/uL (0.1-1.30); MONOCYTES % (AUTO) 10.4 % (2.0-12.0); NEUTROPHILS # (AUTO) 7.9 K/uL (1.8-8.9); NEUTROPHILS % (AUTO) 68.8 % (43.0-81.0); PLATELET COUNT (AUTO) 582 K/uL (150-450); RED BLOOD CELL COUNT(AUTO) 3.96 MIL/uL (4.0-5.2); WHITE BLOOD COUNT (AUTO) 11.5 K/uL (4.3-11.0)
[2021-07-10] MEDS: PROSOURCE / PROSTAT (PYXIS) 30 ML UDC GT SCH ×2 (08:36→17:03)
[2021-07-10] MEDS: ARGININE/GLUTAMINE/CALCIUM BMB 1 EACH POWD.PACK GT SCH ×2 (08:36→17:03)
[2021-07-10] MEDS: FERROUS SULFATE UDC 300 MG/5 ML UDC GT SCH (08:37)
[2021-07-10] MEDS: ACETAMINOPHEN 650 MG/20.3 ML UDC GT SCH (08:37)
[2021-07-10] MEDS: [UNRECOGNIZED DRUG - OTHER] XX SCH (08:37)
[2021-07-10] MEDS: CEFEPIME 2 GM in IV D5W 100 ML IV SCH ×2 (08:37→21:53)
[2021-07-10] MEDS: MULTIVITAMINS,THERAGRAN 1 UDTAB TABLET GT SCH (08:38)
[2021-07-10] MEDS: ASCORBIC ACID 500 MG TABLET GT SCH (08:38)
[2021-07-10] MEDS: METOPROLOL SUCCINATE 25 MG TAB.SR.24H GT SCH ×2 (08:39→21:00)
[2021-07-10] MEDS: PANTOPRAZOLE 40 MG TABLET.DR PO SCH (08:39)
[2021-07-10] MEDS: LEVOTHYROXINE SODIUM 88 MCG TABLET GT SCH (08:40)
[2021-07-10] MEDS: APIXABAN 2.5 MG TABLET GT SCH ×2 (08:41→17:04)
[2021-07-10] MEDS: IV 1/2NS 1000 ML 1,000 ML IV PRN (08:42)
[2021-07-10] MEDS: DAKINS QUARTER STRENGTH (0.125%) 480 ML BOTTLE TOP SCH (09:09)
[2021-07-10 12:00] VITALS: BP 111/61
[2021-07-10] MEDS: ZINC SULFATE 220 MG CAPSULE PO SCH (12:19)
[2021-07-10] MEDS: SOD FERRIC GLUC 125 MG in IV NS 0.9% 100 ML IV SCH (15:05)
[2021-07-10] MEDS ORDERED: LACT-209 GT (15:12)
[2021-07-10] MEDS ORDERED: VANC1PLA9 IV (15:12)
[2021-07-10] MEDS ORDERED: VANC1VIA34 XX (15:12)
[2021-07-10] MEDS ORDERED: Prosource GT (15:12)
[2021-07-10] MEDS ORDERED: CEFE2FRO IV (15:12)
[2021-07-10 16:00] VITALS: BP 102/54
[2021-07-10] MEDS: VANCOMYCIN 1 GM in IV D5W 250 ML IV SCH (17:03)
--- NOTE | 2021-07-10 19:30 | NUR ---
RN OPENING NOTES RECEIVED CARE OF PATIENT WHILE PATIENT IN BED, A/O X1, NON VERBAL,OPENS EYES, NO S/S OF PAIN NOTED AT THIS TIME. PATIENT ON ROOM AIR, BREATHING EVEN AND UNLABORED, NO SOB NOTED. IV ACCESS JOSE MIDLINE WITH 1/2 NS AT 75ML/HR, AND R HAND INTACT, PATENT AND FLUSHING WELL. HITCHCOCK CATHETER, IN PLACED AND DRAINING WELL. NO SIGNIFICANT FINDINGS UPON INITIAL NURSING ASSESSMENTS. FALL AND SAFETY MEASURES IN PLACE, BED ALARM ON, BED IN LOW AND LOCK POSITION, CALL LIGHT AND TABLE WITHIN EASY REACH, SIDE RAIL UP X2. WILL CONTINUE TO MONITOR.
--- NOTE | 2021-07-10 19:55 | NUR ---
RN CLOSING NOTES PATIENT IS AWAKE IN BED RESTING, A/O X1, NON-VERBAL. NO S/S OF PAIN NOTED AT THIS TIME. ON ROOM AIR, NO DISTRESS OR SHORTNESS OF BREATH NOTED. IV ACCESS JOSE MIDLINE WITH 1/2 NS AT 75ML/HR, AND R HAND INTACT, PATENT AND FLUSHING WELL. PATIENT HAVE HITCHCOCK CATHETER, IN PLACED AND DRAINING WELL. SCHEDULE GIVEN. FALL AND SAFETY MEASURES IN PLACE, BED ALARM ON, BED IN LOW AND LOCK POSITION, CALL LIGHT AND TABLE WITHIN EASY REACH, SIDE RAIL UP X2. WILL ENDORSE TO EMERGENCY ROOM CLERK.
[2021-07-10 20:00] VITALS: BP 110/50
[2021-07-11] MEDS: JEVITY 1.2 CAL 1,000 ML BOTTLE GT SCH ×2 (01:58→22:36)
[2021-07-11] MEDS: IV 1/2NS 1000 ML 1,000 ML IV PRN ×2 (02:24→22:36)
[2021-07-11 04:00] VITALS: BP 101/58
[2021-07-11 07:00] LABS: BASOPHILS % (AUTO) 0.2 % (0.0-2.0); EOSINOPHILS % (AUTO) 4.4 % (0.0-6.0); HEMATOCRIT 28 % (33-45); HEMOGLOBIN 8.2 g/dL (11.5-14.8); LYMPHOCYTES # (AUTO) 1.7 K/uL (0.8-4.8); MEAN CORPUSCULAR HGB CONC 30 g/dl (31.0-36.0); MEAN CORPUSCULAR VOLUME 69 fL (82-100); MONOCYTES # (AUTO) 1.2 K/uL (0.1-1.30); MONOCYTES % (AUTO) 10.5 % (2.0-12.0); NEUTROPHILS # (AUTO) 7.9 K/uL (1.8-8.9); NEUTROPHILS % (AUTO) 69.9 % (43.0-81.0); PLATELET COUNT (AUTO) 709 K/uL (150-450); RED BLOOD CELL COUNT(AUTO) 3.97 MIL/uL (4.0-5.2); WHITE BLOOD COUNT (AUTO) 11.3 K/uL (4.3-11.0)
--- NOTE | 2021-07-11 07:27 | NUR ---
RN CLOSING NOTES ENDORSED CARE OF PATIENT TO AM NURSE IN STABLE CONDITIONS. PATIENT REMAINS IN BED,A/O X1, OPENS EYES TO NAME. ON ROOM AIR, NO RESPIRATORY ISSUES NOTED THROUGHOUT SHIFT. NO SIGNIFICANT FINDINGS UPON ALL NURSING ASSESSMENTS. ALL NEEDS ATTENDED TO. ALL DUE MEDS GIVEN. BED IS LOCKED IN LOWEST POSITION AND ALL HOSPITAL PRECAUTIONS ARE IN PLACE. ENDORSED TO AM NURSE FOR COLTEN.
--- NOTE | 2021-07-11 07:30 | NUR ---
RN OPENING NOTES RECEIVED PATIENT IN BED AWAKE, OPEN EYES TO NAME. NOT IN DISTRESS, NO FACIAL GRIMACING NOTED. GT INTACT WITH TF JEVITY 1.2 @ 55CCHR, JOES MIDLINE PATENT AND INTACT WITH IVF RUNNING 1/2 NS @ 75CCHR. RIGHT HAND G#22 INTACT NO BLEEDING NOTED. BED TO LOWEST POSITION AND LOCKED.
[2021-07-11 07:37] LABS: CALCIUM, SERUM 8.5 mg/dL (8.5-10.1); CARBON DIOXIDE 26 mmol/L (21-32); CHLORIDE 106 mmol/L (98-107); CREATININE 0.5 mg/dL (0.6-1.3); GLUCOSE 118 mg/dL (74-106); POTASSIUM 3.9 mmol/L (3.5-5.1); SODIUM SERUM 140 mmol/L (136-145); UREA NITROGEN, BLOOD 26 mg/dL (7-18)
[2021-07-11] MEDS: METOPROLOL SUCCINATE 25 MG TAB.SR.24H GT SCH ×2 (09:00→20:36)
[2021-07-11] MEDS: ARGININE/GLUTAMINE/CALCIUM BMB 1 EACH POWD.PACK GT SCH ×2 (10:00→16:10)
[2021-07-11] MEDS: PROSOURCE / PROSTAT (PYXIS) 30 ML UDC GT SCH ×2 (10:00→16:10)
[2021-07-11] MEDS: [UNRECOGNIZED DRUG - OTHER] XX SCH (10:01)
[2021-07-11] MEDS: ASCORBIC ACID 500 MG TABLET GT SCH (10:01)
[2021-07-11] MEDS: FERROUS SULFATE UDC 300 MG/5 ML UDC GT SCH (10:01)
[2021-07-11] MEDS: CEFEPIME 2 GM in IV D5W 100 ML IV SCH ×2 (10:01→20:36)
[2021-07-11] MEDS: MULTIVITAMINS,THERAGRAN 1 UDTAB TABLET GT SCH (10:02)
[2021-07-11] MEDS: ACETAMINOPHEN 650 MG/20.3 ML UDC GT SCH (10:02)
[2021-07-11] MEDS: ZINC SULFATE 220 MG CAPSULE PO SCH (10:02)
[2021-07-11] MEDS: LEVOTHYROXINE SODIUM 88 MCG TABLET GT SCH (10:02)
[2021-07-11] MEDS: PANTOPRAZOLE 40 MG TABLET.DR PO SCH (10:02)
[2021-07-11] MEDS: APIXABAN 2.5 MG TABLET GT SCH ×2 (10:03→16:11)
[2021-07-11] MEDS: DAKINS QUARTER STRENGTH (0.125%) 480 ML BOTTLE TOP SCH (10:06)
[2021-07-11 10:20] LABS: IRON, SERUM 38 ug/dl (50-175); TOTAL IRON BINDING CAPACITY 167 ug/dl (250-450)
[2021-07-11 10:43] LABS: FERRITIN 485 ng/mL (8-388)
[2021-07-11] MEDS: VANCOMYCIN 1 GM in IV D5W 250 ML IV SCH (11:54)
[2021-07-11 12:00] VITALS: BP 98/48
[2021-07-11] MEDS: SOD FERRIC GLUC 125 MG in IV NS 0.9% 100 ML IV SCH (15:08)
--- NOTE | 2021-07-11 18:52 | NUR ---
RN CLOSING NOTES PATIENT IN BED, NOT IN DISTRESS, NO FACIAL GRIMACING NOTED. GT INTACT WITH TF JEVITY 1.2 @ 55CCHR, JOSE MIDLINE WITH IV RUNNING 1/2 NS @ 75CCHR. FC PATENT AND INTACT. SON VISITED AND MADE A COPY OF THE POA AND FILED IN THE PHYSICAL CHART. THERAPEUTIC EXERCISE 15 MINS OT THIS MORNING. OK TO HAVE FAMILY VISITOR, OK TO DC ISOLATION PER ORDER. PER SON PLANNING TO TRANSFER PATIENT TO [facility] INSTEAD OF PATIENT TO BE DISCHARGE TO A FACILITY. BED TO LOWEST POSITION AND LOCKED. WILL ENDORSE TO HOTEL ASSISTANT GENERAL MANAGER RN ON DUTY
--- NOTE | 2021-07-11 19:47 | NUR ---
RN OPENING NOTES RECEIVED PT IN BED, ASLEEP, AWAKENS EYES TO VERBAL STIMULI. AOx1, NONVERBAL. ON RA AND TOLERATING WELL. NO SOB NOTED. NO S/SX OF RESPIRATORY DISTRESS NOTED. IV ACCESS IN JOSE MIDLINE, R HAND #20 RUNNING 1/2 NS @ 75 ML/HR. G-TUBE RUNNING JEVITY 1.2 @ 55 ML/HR. SAFETY PRECAUTIONS IN PLACE: BED IN LOWEST, LOCKED POSITION, SIDERAILS UPx2, AND BRAKES ON. TABLE AND CALL LIGHT WITHIN REACH. WILL CONTINUE TO MONITOR.
[2021-07-11 20:00] VITALS: BP 98/50
[2021-07-12 04:00] VITALS: BP 103/44
[2021-07-12] MEDS: VANCOMYCIN 1 GM in IV D5W 250 ML IV SCH ×2 (05:56→23:30)
[2021-07-12 06:45] LABS: BASOPHILS % (AUTO) 0.4 % (0.0-2.0); EOSINOPHILS % (AUTO) 4.7 % (0.0-6.0); HEMATOCRIT 31 % (33-45); HEMOGLOBIN 9.1 g/dL (11.5-14.8); LYMPHOCYTES # (AUTO) 1.6 K/uL (0.8-4.8); LYMPHOCYTES % (AUTO) 17.4 % (20.0-44.0); MEAN CORPUSCULAR HGB CONC 29 g/dl (31.0-36.0); MEAN CORPUSCULAR VOLUME 71 fL (82-100); MONOCYTES % (AUTO) 11.6 % (2.0-12.0); NEUTROPHILS % (AUTO) 65.9 % (43.0-81.0); PLATELET COUNT (AUTO) 649 K/uL (150-450); RED BLOOD CELL COUNT(AUTO) 4.35 MIL/uL (4.0-5.2)
--- NOTE | 2021-07-12 06:53 | NUR ---
RN CLOSING NOTES PT IN BED, WITH EYES OPEN. AOx1, NONVERBAL. ON RA AND TOLERATING WELL. NO SOB NOTED. NO S/SX OF RESPIRATORY DISTRESS NOTED. IV ACCESS IN JOSE MIDLINE RUNNING 1/2 NS @ 75 ML/HR. G-TUBE RUNNING JEVITY 1.2 @ 55 ML/HR AND TOLERATING WELL. HITCHCOCK CATHETER DRAINING CLEAR,YELLOW URINE. ALL NEEDS MET. PT KEPT CLEAN AND DRY. SAFETY PRECAUTIONS IN PLACE: BED IN LOWEST, LOCKED POSITION, SIDERAILS UPx2, AND BRAKES ON. TABLE AND CALL LIGHT WITHIN REACH. WILL ENDORSE TO ONCOMING SHIFT FOR COLTEN.
[2021-07-12 07:07] LABS: CALCIUM, SERUM 8.9 mg/dL (8.5-10.1); CARBON DIOXIDE 27 mmol/L (21-32); CHLORIDE 107 mmol/L (98-107); CREATININE 0.5 mg/dL (0.6-1.3); GLUCOSE 96 mg/dL (74-106); SODIUM SERUM 143 mmol/L (136-145); UREA NITROGEN, BLOOD 24 mg/dL (7-18)
--- NOTE | 2021-07-12 08:03 | NUR ---
RN OPENING NOTE PATIENT RECEIVED IN BED, AO X 1, IN NO ACUTE DISTRESS NOTED. RESPIRATORY EVEN AND UNLABORED ON ROOM AIR. SKIN IS WARM TO TOUCH, KEEP CLEAN/DRY, INTACT IV SITE. KEPT ELEVATED HOB FOR ENSURE AIRWAY AND ASPIRATION PRECAUTION, ALSO LOWEST POSITION OF THE BED, S/R UP X 3 FOR SAFETY. ALL SAFETY PRECAUTION APPLIED. CALL LIGHT WITHIN REACH, WILL CONTINUE TO MONITOR.
--- NOTE | 2021-07-12 09:03 | NUR ---
WOUND CARE: RECEIVED ORDER FROM DR MALONE TO APPLY [facility] WOUND VAC TO SACRAL PRESSURE ULCER. SKIN PREP AND VAC DRAPE WAS APPLIED TO PERIWOUND AREAS AFTER WOUND CLEANSED WITH DAKINS SOLUTION. TWO PIECES OF GRANUFOAM USED FOR WOUND BED. VAC AT 125mmHg CONTINUOUS SETTING. BRIDGING TECHNIQUE USED. WOUND MEASURES 5CM X 6CM X 2CM AND UNDERMINING OF 3CM NOTED FROM 9:00 TO 1:00. WOUND HAS RED GRANULATION TISSUE WITH BONE VISIBLE AND PALPABLE. PT IS INCONTINENT OF STOOL. DISCUSSED SKIN PROTECTION WITH NURSING STAFF. PT IS ON FIRST STEP [facility] LOW AIRLOSS MATTRESS. IN AGREEMENT WITH PLAN OF CARE. PLAN NEXT VAC DRESSING CHANGE SATURDAY.
[2021-07-12] MEDS: LEVOTHYROXINE SODIUM 88 MCG TABLET GT SCH (09:15)
[2021-07-12] MEDS: ACETAMINOPHEN 650 MG/20.3 ML UDC GT SCH (09:15)
[2021-07-12] MEDS: PANTOPRAZOLE 40 MG TABLET.DR PO SCH (09:15)
[2021-07-12] MEDS: METOPROLOL SUCCINATE 25 MG TAB.SR.24H GT SCH ×2 (09:16→21:29)
[2021-07-12] MEDS: FERROUS SULFATE UDC 300 MG/5 ML UDC GT SCH (09:16)
[2021-07-12] MEDS: APIXABAN 2.5 MG TABLET GT SCH ×2 (09:18→17:50)
[2021-07-12] MEDS: ZINC SULFATE 220 MG CAPSULE PO SCH (09:19)
[2021-07-12] MEDS: ASCORBIC ACID 500 MG TABLET GT SCH (09:19)
[2021-07-12] MEDS: MULTIVITAMINS,THERAGRAN 1 UDTAB TABLET GT SCH (09:19)
[2021-07-12] MEDS: CEFEPIME 2 GM in IV D5W 100 ML IV SCH ×2 (09:19→21:28)
[2021-07-12] MEDS: PROSOURCE / PROSTAT (PYXIS) 30 ML UDC GT SCH ×2 (09:20→17:50)
[2021-07-12] MEDS: ARGININE/GLUTAMINE/CALCIUM BMB 1 EACH POWD.PACK GT SCH ×2 (09:20→17:50)
[2021-07-12] MEDS: [UNRECOGNIZED DRUG - OTHER] XX SCH (09:37)
[2021-07-12] MEDS: DAKINS QUARTER STRENGTH (0.125%) 480 ML BOTTLE TOP SCH (09:37)
--- NOTE | 2021-07-12 11:45 | NUR ---
ST swallow evaluation: completed. D/W RN jose luis. pt is familiar from other visits from different hospital and skilled facility. pt previously on pureed and nectar liquids for oral gratification. pt is non verbal and does not follow directions consistently. presenting with mod oropharyngeal phase dysphagia as it is prevalent with decreased lingual/labial ROM/coordination/and strength. pt will hold bolus in mouth before initiating a swallow response. mild delay in hyolaryngeal elevation upon palpitation is noted. No vocal quality can be determined at this time, d/2 no verbal output. recommending to continue with NPO and PEG oral care and hygiene keep the HOB>45 degrees
[2021-07-12] MEDS: SOD FERRIC GLUC 125 MG in IV NS 0.9% 100 ML IV SCH (15:48)
[2021-07-12] MEDS: IV 1/2NS 1000 ML 1,000 ML IV PRN (15:52)
--- NOTE | 2021-07-12 18:55 | NUR ---
RN CLOSING NOTE PATENT IN BED, RESTING, IN NO ACUTE DISTRESS OBSERVED. RESPIRATORY EVEN AND UNLABORED ON ROOM AIR. SKIN IS WARM TO TOUCH KEEP CLEAN/DRY, INTACT IV SITE. PATIENT STARTED WOUND VAC ON SACRAL AND NO ADVERSE REACTION OBSERVED. HITCHCOCK CATH CONNECTING TO THE URINE BAG, 1900ML OUT PUT. KEPT ELEVATE HOB FOR ASPIRATION PRECAUTION AND ENSURE AIRWAY, ALSO LOWEST POSITION OF THE BED FOR SAFETY. CALL LIGHT WITHIN REACH, WILL ENDORSE TO WEED BURNER.
[2021-07-12 20:00] VITALS: BP 111/63
[2021-07-13] MEDS: JEVITY 1.2 CAL 1,000 ML BOTTLE GT SCH ×2 (01:22→22:09)
[2021-07-13 04:00] VITALS: BP 118/51
[2021-07-13] MEDS: IV 1/2NS 1000 ML 1,000 ML IV PRN ×2 (06:22→22:09)
--- NOTE | 2021-07-13 06:39 | NUR ---
WOUND CARE: WOUND VAC FUNCTIONING WELL AT 125 mmHg CONTINUOUS SETTING TO SACRAL ULCER. SMALL AMOUNT OF SEROSANGUINOUS DRAINAGE NOTED IN CANISTER. WILL FOLLOW.
--- NOTE | 2021-07-13 07:18 | NUR ---
RN CLOSING NOTES Patient is currently awake, alert, and responsive to sound, touch. No overnight events. Patient stable on 3L via NC. Wound vac applied minimal serosanguineous output -in place and functioning. Turned q2h, kept clean and dry. 1/2 NS infusing to OJSE midline at 75cc/hr. G-tube feeding running at 55cc/hr tolerating well. No signs of distress at this time.
[2021-07-13 07:32] LABS: BASOPHILS # (AUTO) 0.1 K/uL (0.0-0.2); BASOPHILS % (AUTO) 0.4 % (0.0-2.0); EOSINOPHILS % (AUTO) 3.9 % (0.0-6.0); HEMATOCRIT 31 % (33-45); HEMOGLOBIN 9.3 g/dL (11.5-14.8); LYMPHOCYTES # (AUTO) 1.2 K/uL (0.8-4.8); LYMPHOCYTES % (AUTO) 9.3 % (20.0-44.0); MEAN CORPUSCULAR HGB CONC 30 g/dl (31.0-36.0); MEAN CORPUSCULAR VOLUME 71 fL (82-100); MONOCYTES # (AUTO) 1.6 K/uL (0.1-1.30); MONOCYTES % (AUTO) 12.8 % (2.0-12.0); NEUTROPHILS # (AUTO) 9.3 K/uL (1.8-8.9); NEUTROPHILS % (AUTO) 73.6 % (43.0-81.0); PLATELET COUNT (AUTO) 724 K/uL (150-450); RED BLOOD CELL COUNT(AUTO) 4.42 MIL/uL (4.0-5.2); WHITE BLOOD COUNT (AUTO) 12.6 K/uL (4.3-11.0)
[2021-07-13 07:45] LABS: CALCIUM, SERUM 8.7 mg/dL (8.5-10.1); CARBON DIOXIDE 26 mmol/L (21-32); CHLORIDE 105 mmol/L (98-107); CREATININE 0.5 mg/dL (0.6-1.3); GLUCOSE 103 mg/dL (74-106); POTASSIUM 4.2 mmol/L (3.5-5.1); SODIUM SERUM 137 mmol/L (136-145); UREA NITROGEN, BLOOD 24 mg/dL (7-18)
--- NOTE | 2021-07-13 08:00 | NUR ---
RN OPENING NOTE PATENT IN BED, RESTING, NO ACUTE DISTRESS OBSERVED. RESPIRATORY EVEN AND UNLABORED ON ROOM AIR. SKIN IS WARM TO TOUCH KEEP CLEAN/DRY, INTACT IV SITE JOSE ML RUNNING 1/2NS @ 75ML/HR. PATIENT HAS WOUND VAC ON SACRAL AND NO ADVERSE REACTION OBSERVED. HITCHCOCK CATH CONNECTING TO THE URINE BAG KEPT ELEVATED HOB FOR ASPIRATION PRECAUTION ALL SAFETY MEASURES NOTED AND ACCOUNTED FOR. BED IN LOWEST POSITION AND WHEELS LOCKED IN PLACE. CALL LIGHT WITHIN REACH, WILL CONTINUE TO MONITOR.
[2021-07-13] MEDS: ACETAMINOPHEN 650 MG/20.3 ML UDC GT SCH (08:41)
[2021-07-13] MEDS: PROSOURCE / PROSTAT (PYXIS) 30 ML UDC GT SCH ×2 (08:41→16:24)
[2021-07-13] MEDS: [UNRECOGNIZED DRUG - OTHER] XX SCH (08:41)
[2021-07-13] MEDS: CEFEPIME 2 GM in IV D5W 100 ML IV SCH ×2 (08:41→22:03)
[2021-07-13] MEDS: PANTOPRAZOLE 40 MG TABLET.DR PO SCH (08:42)
[2021-07-13] MEDS: LEVOTHYROXINE SODIUM 88 MCG TABLET GT SCH (08:42)
[2021-07-13] MEDS: ASCORBIC ACID 500 MG TABLET GT SCH (08:42)
[2021-07-13] MEDS: FERROUS SULFATE UDC 300 MG/5 ML UDC GT SCH (08:42)
[2021-07-13] MEDS: MULTIVITAMINS,THERAGRAN 1 UDTAB TABLET GT SCH (08:42)
[2021-07-13] MEDS: ZINC SULFATE 220 MG CAPSULE PO SCH (08:42)
[2021-07-13] MEDS: APIXABAN 2.5 MG TABLET GT SCH ×2 (08:43→16:45)
[2021-07-13] MEDS: METOPROLOL SUCCINATE 25 MG TAB.SR.24H GT SCH ×2 (08:43→22:03)
[2021-07-13] MEDS: DAKINS QUARTER STRENGTH (0.125%) 480 ML BOTTLE TOP SCH (08:53)
[2021-07-13] MEDS: ARGININE/GLUTAMINE/CALCIUM BMB 1 EACH POWD.PACK GT SCH ×2 (08:55→16:24)
[2021-07-13 12:00] VITALS: BP 114/56
[2021-07-13] MEDS: VANCOMYCIN 1 GM in IV D5W 250 ML IV SCH (18:18)
--- NOTE | 2021-07-13 18:45 | NUR ---
RN CLOSING NOTE PATIENT REMAINED STABLE THROUGHOUT SHIFT. PATENT IN BED, RESTING, NO ACUTE DISTRESS OBSERVED. RESPIRATORY EVEN AND UNLABORED ON ROOM AIR. SKIN IS WARM TO TOUCH KEPT CLEAN/DRY, INTACT IV SITE JOSE ML RUNNING 1/2NS @ 75ML/HR. PATIENT HAS WOUND VAC ON SACRAL AND NO ADVERSE REACTION OBSERVED. HITCHCOCK CATH CONNECTING TO THE URINE BAG KEPT ELEVATED HOB FOR ASPIRATION PRECAUTION ALL SAFETY MEASURES NOTED AND ACCOUNTED FOR. ALL NEEDS MET AND MEDS ADM PER MD ORDER. BED IN LOWEST POSITION AND WHEELS LOCKED IN PLACE. CALL LIGHT WITHIN REACH, ENDORSE TO SOCIAL SERVICES SPECIALIST RN.
[2021-07-13 20:00] VITALS: BP 114/58
--- NOTE | 2021-07-13 20:00 | NUR ---
RN NOTE RECEIVED PT IN BED. AWAKE, NONVERBAL. ON 2L NC. NOT IN ANY DISTRESS. NO S/SX OF PAIN NOTED. GT PATENT AND INTACT, ON GT FEEDING OF JEVITY AT 55ML/HR. MINIMAL RESIDUALS NOTED. KEPT HOB ELEVATED. MIDLINE PATENT, 1/2 NS RUNNING AT 75ML/HR. HITCHCOCK IN PLACE, DRAINING CLEAR YELLOW URINE OUTPUT. WOUND VAC IN PLACE. ALL SAFETY MEASURES IN PLACE. WILL CONTINUE TO MONITOR.
[2021-07-14 04:00] VITALS: BP 110/92
--- NOTE | 2021-07-14 07:26 | NUR ---
RN CLOSING NOTES PT REMAINS IN BED, AWAKE. NO SIGNIFICANT CHANGES NOTED. CONTINUE ON 2L NC. NOT IN ANY DISTRESS. TOLERATING GT FEEDINGS.KEPT HOB ELEVATED. NO S/SX OF ASPIRATION NOTED. 1/2 NS INFUSING WELL. NO SIGNS OF INFILTRATION. WOUND VAC SUCTIONING WELL. HITCHCOCK REMAIN INTACT. REMAIN AFEBRILE. ENDORSED TO NEXT SHIFT NURSE FOR COLTEN.
--- NOTE | 2021-07-14 07:30 | NUR ---
RN OPENING NOTES RECEIVED PATIENT IN BED, AWAKE, NON-VERBAL. NO SIGNS OF ACUTE DISTRESS NOTED. ON O2 @2LPM VIA N/C, NO SOB NOTED, BREATHING EVEN AND UNLABORED. WITH IV ACCESS ON JOSE MIDLINE, INTACT WITH 1/2 NS @75CC/HR RUNNING. WITH F/C INTACT, DRAINING CLEAR YELLOW URINE. G-TUBE INTACT AND PATENT, WITH GT FEEDING OF JEVITY @55ML/HR, TOLERATED WELL. WOUND VAC ON SACRAL AREA INTACT. ASPIRATIONS PRECAUTIONS OBSERVED. HOB ELEVATED AT ALL TIMES. SAFETY MEASURES IN PLACE. BED IN LOWEST LOCKED POSITION, SR UP, CALL LIGHT PLACED WITHIN EASY REACH. ISOLATION PRECAUTION OBSERVED. WILL CONTINUE TO MONITOR.
--- NOTE | 2021-07-14 08:09 | NUR ---
WOUND CARE FOLLOW UP: WOUND VAC DRESSING CHANGED TO SACRAL STAGE 4 ULCER. SKIN PREP AND VAC DRAPE TO PERIWOUND, 2 PIECES OF GRANUFOAM USED. VAC AT 125mmHg CONTINUOUS SETTING WITH SMALL AMOUNT OF PINK DRAINAGE IN CANISTER. BRIDGING TECHNIQUE USED. RED GRANULATION TISSUE NOTED WITH BONE PRESENT. PT CONTINUES TO BE INCONTINENT OF LOOSE STOOL. RECOMMEND SURGICAL FOLLOW UP. PT IS ON FIRST STEP CIRRUS LOW AIRLOSS MATTRESS. ALL SKIN PROTECTION MEASURES IN PLACE. SKIN NOTED TO BE FRAGILE. MD IN AGREEMENT WITH PLAN OF CARE.
[2021-07-14] MEDS: METOPROLOL SUCCINATE 25 MG TAB.SR.24H GT SCH ×2 (09:00→21:00)
[2021-07-14] MEDS: PANTOPRAZOLE 40 MG TABLET.DR PO SCH (09:11)
[2021-07-14] MEDS: MULTIVITAMINS,THERAGRAN 1 UDTAB TABLET GT SCH (09:11)
[2021-07-14] MEDS: ACETAMINOPHEN 650 MG/20.3 ML UDC GT SCH (09:11)
[2021-07-14] MEDS: ZINC SULFATE 220 MG CAPSULE PO SCH (09:11)
[2021-07-14] MEDS: ASCORBIC ACID 500 MG TABLET GT SCH (09:11)
[2021-07-14] MEDS: LEVOTHYROXINE SODIUM 88 MCG TABLET GT SCH (09:11)
[2021-07-14] MEDS: FERROUS SULFATE UDC 300 MG/5 ML UDC GT SCH (09:11)
[2021-07-14] MEDS: CEFEPIME 2 GM in IV D5W 100 ML IV SCH ×2 (09:14→22:30)
[2021-07-14] MEDS: [UNRECOGNIZED DRUG - OTHER] XX SCH (09:14)
[2021-07-14] MEDS: DAKINS QUARTER STRENGTH (0.125%) 480 ML BOTTLE TOP SCH (09:15)
[2021-07-14] MEDS: APIXABAN 2.5 MG TABLET GT SCH ×2 (09:21→16:39)
[2021-07-14] MEDS: ARGININE/GLUTAMINE/CALCIUM BMB 1 EACH POWD.PACK GT SCH ×2 (09:22→16:39)
[2021-07-14] MEDS: PROSOURCE / PROSTAT (PYXIS) 30 ML UDC GT SCH ×2 (09:22→16:39)
[2021-07-14] MEDS: VANCOMYCIN 1 GM in IV D5W 250 ML IV SCH (11:54)
[2021-07-14 11:55] LABS: CALCIUM, SERUM 8.7 mg/dL (8.5-10.1); CARBON DIOXIDE 27 mmol/L (21-32); CHLORIDE 102 mmol/L (98-107); CREATININE 0.5 mg/dL (0.6-1.3); GLUCOSE 126 mg/dL (74-106); SODIUM SERUM 136 mmol/L (136-145); UREA NITROGEN, BLOOD 18 mg/dL (7-18)
[2021-07-14 12:00] VITALS: BP 112/47
[2021-07-14] MEDS: IV 1/2NS 1000 ML 1,000 ML IV PRN (12:04)
--- NOTE | 2021-07-14 18:53 | NUR ---
RN CLOSING NOTES PATIENT IN BED, AWAKE, NON-VERBAL, EYES OPEN. NO SIGNS OF ACUTE DISTRESS NOTED. REMAINS ON O2 @2LPM VIA N/C, NO SOB NOTED, BREATHING EVEN AND UNLABORED. WITH IV ACCESS ON JOSE MIDLINE, INTACT WITH 1/2 NS @75CC/HR RUNNING. WITH F/C INTACT, DRAINING CLEAR YELLOW URINE. G-TUBE INTACT AND PATENT, WITH GT FEEDING OF JEVITY @55ML/HR, TOLERATED WELL. WOUND VAC ON SACRAL AREA INTACT. ASPIRATIONS PRECAUTIONS OBSERVED. HOB ELEVATED AT ALL TIMES. SAFETY MEASURES IN PLACE. BED IN LOWEST LOCKED POSITION, SR UP, CALL LIGHT PLACED WITHIN EASY REACH. ISOLATION PRECAUTION OBSERVED. NO SIGNIFICANT EVENTS THIS SHIFT. WILL ENDORSE TO NEXT SHIFT FOR COLTEN.
--- NOTE | 2021-07-14 20:29 | NUR ---
KENNY/RN PATIENT IS IN BED APPEAR SLEEPING, APPEAR COMFORTABLE, BREATHING EVEN AND UNLABORED, HOB ELEVATED WITH G TUBE FEEDING INFUSING, NEEDS ATTENDED, WILL MONITOR.
[2021-07-14 20:40] VITALS: BP 104/52
--- NOTE | 2021-07-14 22:00 | NUR ---
KENNY/RN TOPROL XL NO ADMINISTERED THE MEDICATION IS EXTENDED RELEASE AND CAN NOT BE CRUSHED. PATIENT IS ON G TUBE FEEDING. WILL ENDORSE IN A.M.
[2021-07-14] MEDS: JEVITY 1.2 CAL 1,000 ML BOTTLE GT SCH (22:33)
[2021-07-15 04:00] VITALS: BP 104/55
[2021-07-15] MEDS: VANCOMYCIN 1 GM in IV D5W 250 ML IV SCH ×2 (06:15→17:07)
[2021-07-15] MEDS: IV 1/2NS 1000 ML 1,000 ML IV PRN ×2 (06:21→18:42)
--- NOTE | 2021-07-15 06:41 | NUR ---
KENNY/RN PATIENT IS IN BED AWAKE, COMFORTABLE, NO DISTRESS NOTED, G TUBE FEEDING INFUSING, HOB ELEVATED, IVF INFUSING, ALL NEEDS ATTENDED AT THIS TIME, WILL CONTINUE TO MONITOR.
--- NOTE | 2021-07-15 07:28 | NUR ---
RN OPENING NOTE PATIENT RECEIVED IN BED, EYES CLOSED, RESTING. PATIENT ON 2L O2 NC WITH NO SIGNS OF LABORED BREATHING AT THIS TIME. WOUND VAC IN PLACE ON SACRUM STAGE 4 PU[address] G TUBE IN PLACE RUNNING JEVITY AT 55CC/HR. LEFT UA MIDLINE IN PLACE RUNNING 1/2 NS AT 75 CC/HR. HITCHCOCK CATH IN PLACE. NO SIGNS OF ACUTE DISTRESS NOTED AT THIS TIME. BED LOCKED AND IN LOWEST POSITION, 2 SIDE RAILS UP, CALL LIGHT WITHIN REACH. WILL CONTINUE TO MONITOR.
[2021-07-15 08:00] VITALS: BP 104/59
[2021-07-15 08:03] LABS: BASOPHILS # (AUTO) 0.1 K/uL (0.0-0.2); BASOPHILS % (AUTO) 0.7 % (0.0-2.0); EOSINOPHILS % (AUTO) 3.2 % (0.0-6.0); HEMATOCRIT 30 % (33-45); HEMOGLOBIN 8.8 g/dL (11.5-14.8); LYMPHOCYTES # (AUTO) 1.8 K/uL (0.8-4.8); MEAN CORPUSCULAR HGB CONC 30 g/dl (31.0-36.0); MEAN CORPUSCULAR VOLUME 72 fL (82-100); MONOCYTES # (AUTO) 1.5 K/uL (0.1-1.30); MONOCYTES % (AUTO) 13.2 % (2.0-12.0); NEUTROPHILS # (AUTO) 7.5 K/uL (1.8-8.9); NEUTROPHILS % (AUTO) 66.9 % (43.0-81.0); PLATELET COUNT (AUTO) 643 K/uL (150-450); RED BLOOD CELL COUNT(AUTO) 4.17 MIL/uL (4.0-5.2); WHITE BLOOD COUNT (AUTO) 11.2 K/uL (4.3-11.0)
[2021-07-15] MEDS: ACETAMINOPHEN 650 MG/20.3 ML UDC GT SCH (08:27)
[2021-07-15] MEDS: LEVOTHYROXINE SODIUM 88 MCG TABLET GT SCH (08:27)
[2021-07-15] MEDS: ZINC SULFATE 220 MG CAPSULE PO SCH (08:27)
[2021-07-15] MEDS: FERROUS SULFATE UDC 300 MG/5 ML UDC GT SCH (08:27)
[2021-07-15] MEDS: ASCORBIC ACID 500 MG TABLET GT SCH (08:27)
[2021-07-15] MEDS: MULTIVITAMINS,THERAGRAN 1 UDTAB TABLET GT SCH (08:27)
[2021-07-15] MEDS: PANTOPRAZOLE 40 MG TABLET.DR PO SCH (08:27)
[2021-07-15] MEDS: CEFEPIME 2 GM in IV D5W 100 ML IV SCH ×2 (08:28→21:35)
[2021-07-15] MEDS: APIXABAN 2.5 MG TABLET GT SCH ×2 (08:30→17:07)
[2021-07-15] MEDS: DAKINS QUARTER STRENGTH (0.125%) 480 ML BOTTLE TOP SCH (08:34)
[2021-07-15] MEDS: METOPROLOL SUCCINATE 25 MG TAB.SR.24H GT SCH ×2 (08:35→21:00)
[2021-07-15] MEDS: [UNRECOGNIZED DRUG - OTHER] XX SCH (08:37)
[2021-07-15] MEDS: ARGININE/GLUTAMINE/CALCIUM BMB 1 EACH POWD.PACK GT SCH ×2 (09:37→17:05)
[2021-07-15] MEDS: PROSOURCE / PROSTAT (PYXIS) 30 ML UDC GT SCH ×2 (09:37→17:05)
[2021-07-15 11:13] LABS: CALCIUM, SERUM 8.5 mg/dL (8.5-10.1); CARBON DIOXIDE 29 mmol/L (21-32); CHLORIDE 105 mmol/L (98-107); CREATININE 0.5 mg/dL (0.6-1.3); GLUCOSE 124 mg/dL (74-106); MAGNESIUM 1.9 mg/dL (1.8-2.4); PHOSPHORUS 3.7 mg/dL (2.5-4.9); POTASSIUM 3.7 mmol/L (3.5-5.1); SODIUM SERUM 141 mmol/L (136-145); UREA NITROGEN, BLOOD 19 mg/dL (7-18)
[2021-07-15 16:00] VITALS: BP 94/48
[2021-07-15] MEDS: JEVITY 1.2 CAL 1,000 ML BOTTLE GT SCH (17:16)
--- NOTE | 2021-07-15 18:27 | NUR ---
RN CLOSING NOTE PATIENT REMAINS IN BED, EYES OPEN, RESTING. PATIENT ON 2L O2 NC WITH NO SIGNS OF LABORED BREATHING AT THIS TIME. WOUND VAC IN PLACE ON SACRUM STAGE [address] PU[address] G TUBE IN PLACE RUNNING JEVITY AT 55CC/HR. LEFT UA MIDLINE IN PLACE RUNNING 1/2 NS AT 75 CC/HR. HITCHCOCK CATH IN PLACE. NO SIGNS OF ACUTE DISTRESS NOTED AT THIS TIME. ALL NEEDS ATTENDED DURING SHIFT. BED LOCKED AND IN LOWEST POSITION, 2 SIDE RAILS UP, CALL LIGHT WITHIN REACH. WILL ENDORSE TO AIRPLANE RIGGER NURSE.
--- NOTE | 2021-07-15 19:30 | NUR ---
RN NOTE RECEIVED PATIENT IN BED, DEMENTED, OPENS EYES, NONVERBAL, IN NO ACUTE DISTRESS AT THIS TIME. REPISRATIONS UNLABORED, SATURATION AT 97% ON 2L VIA NC, HR IS 101. NOTED JOSE MIDLINE, PATENT AND FLUSHING WELL, NO S/S OF INFECTION, WITH 1/2 NS INFUSING AT 75 ML/HR. NOTED GTUBE INTACT POSITIVE PLACEMENT NOTED, NO RESIDUAL, WITH TUBE FEEDING OF JEVITY AT 55 ML/HR. HITCHCOCK CATHETER DRAINING TO GRAVITY. WOUND VAC IN PLACE, FUNCTIONING PRESCRIBED, NO AIR LEAK NOTED. PATIENT BED ALARM IS ON. HEAD OF BED ELEVATED. BED IS LOCKED, IN LOWEST POSITION AND SIDE RAILS UP. CALL LIGHT WITHIN REACH OF THE PATIENT. WILL CONTINUE TO MONITOR AND REASSESS FOR ANY CHANGES.
[2021-07-15 20:00] VITALS: BP 114/49
--- NOTE | 2021-07-15 21:30 | NUR ---
RN NOTE Metoprolol XL 25 mg non administered as medication cannot be crushed, but patient is on tube feeding. Dr Keene was made aware. Acknowledged with NNO.
[2021-07-16 00:59] VITALS: BP 94/48
[2021-07-16] MEDS: VANCOMYCIN 1 GM in IV D5W 250 ML IV SCH (05:06)
[2021-07-16 06:14] LABS: BASOPHILS # (AUTO) 0.1 K/uL (0.0-0.2); BASOPHILS % (AUTO) 0.5 % (0.0-2.0); EOSINOPHILS % (AUTO) 3.5 % (0.0-6.0); HEMATOCRIT 31 % (33-45); HEMOGLOBIN 9.2 g/dL (11.5-14.8); LYMPHOCYTES # (AUTO) 1.7 K/uL (0.8-4.8); LYMPHOCYTES % (AUTO) 15.7 % (20.0-44.0); MEAN CORPUSCULAR HGB CONC 30 g/dl (31.0-36.0); MEAN CORPUSCULAR VOLUME 72 fL (82-100); MONOCYTES # (AUTO) 1.1 K/uL (0.1-1.30); NEUTROPHILS # (AUTO) 7.7 K/uL (1.8-8.9); NEUTROPHILS % (AUTO) 70.3 % (43.0-81.0); PLATELET COUNT (AUTO) 663 K/uL (150-450); RED BLOOD CELL COUNT(AUTO) 4.25 MIL/uL (4.0-5.2)
[2021-07-16 06:40] LABS: CALCIUM, SERUM 8.5 mg/dL (8.5-10.1); CARBON DIOXIDE 30 mmol/L (21-32); CHLORIDE 104 mmol/L (98-107); CREATININE 0.5 mg/dL (0.6-1.3); GLUCOSE 113 mg/dL (74-106); MAGNESIUM 2.2 mg/dL (1.8-2.4); PHOSPHORUS 3.8 mg/dL (2.5-4.9); SODIUM SERUM 139 mmol/L (136-145); UREA NITROGEN, BLOOD 17 mg/dL (7-18)
--- NOTE | 2021-07-16 07:49 | NUR ---
RN OPENING NOTES Patient seen comfortably lying in bed, no apparent distress noted, respirations even and unlabored, no shortness of breath, no grimacing. Call light left within reach, safety precautions in place, brakes locked, side rails up X 2, will monitor closely for any changes.
[2021-07-16 08:00] VITALS: BP 119/59
[2021-07-16] MEDS: ACETAMINOPHEN 650 MG/20.3 ML UDC GT SCH (08:37)
[2021-07-16] MEDS: FERROUS SULFATE UDC 300 MG/5 ML UDC GT SCH (08:37)
[2021-07-16] MEDS: CEFEPIME 2 GM in IV D5W 100 ML IV SCH ×2 (08:37→20:52)
[2021-07-16] MEDS: ZINC SULFATE 220 MG CAPSULE PO SCH (08:38)
[2021-07-16] MEDS: PROSOURCE / PROSTAT (PYXIS) 30 ML UDC GT SCH ×2 (08:38→17:10)
[2021-07-16] MEDS: ASCORBIC ACID 500 MG TABLET GT SCH (08:38)
[2021-07-16] MEDS: MULTIVITAMINS,THERAGRAN 1 UDTAB TABLET GT SCH (08:38)
[2021-07-16] MEDS: PANTOPRAZOLE 40 MG TABLET.DR PO SCH (08:38)
[2021-07-16] MEDS: APIXABAN 2.5 MG TABLET GT SCH ×2 (08:41→17:10)
[2021-07-16] MEDS: [UNRECOGNIZED DRUG - OTHER] XX SCH (08:43)
[2021-07-16] MEDS: METOPROLOL TARTRATE 25 MG TABLET GT SCH ×2 (08:43→20:53)
[2021-07-16] MEDS: ARGININE/GLUTAMINE/CALCIUM BMB 1 EACH POWD.PACK GT SCH ×2 (09:03→17:10)
[2021-07-16] MEDS: LEVOTHYROXINE SODIUM 88 MCG TABLET GT SCH (09:03)
[2021-07-16] MEDS: JEVITY 1.2 CAL 1,000 ML BOTTLE GT SCH (09:13)
[2021-07-16] MEDS: IV 1/2NS 1000 ML 1,000 ML IV PRN (09:14)
[2021-07-16] MEDS: DAKINS QUARTER STRENGTH (0.125%) 480 ML BOTTLE TOP SCH (09:23)
[2021-07-16 16:00] VITALS: BP 110/60
--- NOTE | 2021-07-16 18:37 | NUR ---
RN CLOSING NOTES Patient in bed, no apparent distress noted, no shortness of breath, breathing even and unlabored, remained afebrile during shift, remained afebrile. Gastric tube remained patent, intact and in place during shift, placement verified by auscultation and aspiration of gastric residuals. All due medications given via gtube per MD order, tolerating well. Patient on gastric tube feeding (Jevity 1.2 at 55ml/hr) tolerating well, no nausea, no vomiting, no episode of loose stool, abdominal bowel sound present in all quadrants, no grimacing when abdomen palpated. Fox catheter draining clear yellowish urine free from any sediments, no hematuria, and no unusual odor noted in urine, no grimacing when bladder palpated, bladder non distended during shift. Kept clean and dry, all needs attended, aspiration precautions observed at all times, safety precautions in place, frequent visual checks done, repositioning done. brakes locked, side rails up X 2, call light left within reach, will endorse to next shift for continuity of care.
--- NOTE | 2021-07-16 19:40 | NUR ---
RN NOTE PT RECEIVED IN BED. PT IS ON 2L OF O2 VIA NC SHOWING NO S/S OF RESP DISTRESS. BREATHING EVEN AND UNLABORED. PT IS NON-VERBAL. IV ACCESS NOTED ON LEFT UPPER ARM ML. LINE FLUSHED, PATENT, AND INTACT WITH NO SIGNS OF INFILTRATION. 1/2 NS RUNNING AT 75 CC/HR. GTUBE INTACT AND PATENT RUNNING JEVITY 1.2 AT 55CC/HR. TOLERATING WELL. ALL SAFETY MEASURES IMPLEMENTED. HOB ELEVATED. BED LOCKED AND IN LOWEST POSITION. SIDE RAILS UP. WILL CONTINUE TO MONITOR AND ASSESS FOR ANY CHANGES DURING SHIFT.
[2021-07-16 20:00] VITALS: BP 102/57
--- NOTE | 2021-07-17 00:20 | NUR ---
RN NOTE WOUND PICTURES TAKEN AND PLACED IN CHART. UNABLE TO TAKE SACRAL PICTURE DUE TO WOUND EVAC DRESSING OVER IT AND SACRAL PICTURE ALREADY TAKEN/PLACED IN CHART ONCE WOUND EVAC DRESSING WAS CHANGED. NO WOUNDS NOTED ON RIGHT FOOT AND NONE ON RIGHT POSTERIOR THIGH. WILL TAKE OFF ASSESSMENT/FLOWSHEET.
[2021-07-17] MEDS: IV 1/2NS 1000 ML 1,000 ML IV PRN ×2 (01:39→15:30)
[2021-07-17 04:00] VITALS: BP 110/61
[2021-07-17 06:27] LABS: BASOPHILS % (AUTO) 0.3 % (0.0-2.0); EOSINOPHILS % (AUTO) 3.8 % (0.0-6.0); HEMATOCRIT 29 % (33-45); HEMOGLOBIN 8.8 g/dL (11.5-14.8); LYMPHOCYTES # (AUTO) 1.5 K/uL (0.8-4.8); LYMPHOCYTES % (AUTO) 15.4 % (20.0-44.0); MEAN CORPUSCULAR HGB CONC 31 g/dl (31.0-36.0); MEAN CORPUSCULAR VOLUME 71 fL (82-100); MONOCYTES # (AUTO) 1.1 K/uL (0.1-1.30); MONOCYTES % (AUTO) 11.3 % (2.0-12.0); NEUTROPHILS # (AUTO) 6.7 K/uL (1.8-8.9); NEUTROPHILS % (AUTO) 69.2 % (43.0-81.0); PLATELET COUNT (AUTO) 642 K/uL (150-450); RED BLOOD CELL COUNT(AUTO) 4.02 MIL/uL (4.0-5.2); WHITE BLOOD COUNT (AUTO) 9.7 K/uL (4.3-11.0)
--- NOTE | 2021-07-17 06:38 | NUR ---
RN NOTE NO CHANGES IN PT CONDITION DURING SHIFT. PT IS ON 2L OF O2 VIA NC SHOWING NO S/S OF RESP DISTRESS. BREATHING EVEN AND UNLABORED. IV ACCESS ON LEFT UPPER ARM ML. LINE FLUSHED, PATENT, AND INTACT WITH NO SIGNS OF INFILTRATION. 1/2 NS RUNNING AT 75 CC/HR. GTUBE INTACT AND PATENT RUNNING JEVITY 1.2 AT 55CC/HR. TOLERATING WELL. ALL SAFETY MEASURES IMPLEMENTED. PT KEPT CLEAN AND COMFORTABLE. ALL DUE MEDS GIVEN ORDERED. HOB ELEVATED. CALL LIGHT WITHIN REACH. BED LOCKED AND IN LOWEST POSITION. SIDE RAILS UP. WILL ENDORSE TO MORNING SHIFT RN FOR COLTEN.
[2021-07-17 07:32] LABS: CALCIUM, SERUM 8.8 mg/dL (8.5-10.1); CARBON DIOXIDE 28 mmol/L (21-32); CHLORIDE 106 mmol/L (98-107); CREATININE 0.5 mg/dL (0.6-1.3); GLUCOSE 121 mg/dL (74-106); PHOSPHORUS 3.5 mg/dL (2.5-4.9); POTASSIUM 4.1 mmol/L (3.5-5.1); SODIUM SERUM 139 mmol/L (136-145); UREA NITROGEN, BLOOD 29 mg/dL (7-18)
--- NOTE | 2021-07-17 07:34 | NUR ---
MS RN OPENING NOTE RECEIVED PATIENT IN BED, ASLEEP. PT IS ON 2L OF O2 VIA NC SHOWING NO S/SX OF RESP DISTRESS. BREATHING EVEN AND UNLABORED. IV ACCESS ON LEFT UPPER ARM ML. LINE FLUSHED, PATENT, AND INTACT WITH NO SIGNS OF INFILTRATION. 1/2 NS RUNNING AT 75 CC/HR. G-TUBE INTACT AND PATENT RUNNING JEVITY 1.2 AT 55CC/HR. ALL SAFETY MEASURES IN PLACE. HOB ELEVATED. CALL LIGHT WITHIN REACH. BED LOCKED AND IN LOWEST POSITION. SIDE RAILS UP. WILL CONTINUE TO MONITOR PATIENT.
[2021-07-17] MEDS: FERROUS SULFATE UDC 300 MG/5 ML UDC GT SCH (09:05)
[2021-07-17] MEDS: ZINC SULFATE 220 MG CAPSULE PO SCH (09:05)
[2021-07-17] MEDS: PROSOURCE / PROSTAT (PYXIS) 30 ML UDC GT SCH ×2 (09:05→16:09)
[2021-07-17] MEDS: ACETAMINOPHEN 650 MG/20.3 ML UDC GT SCH (09:05)
[2021-07-17] MEDS: ASCORBIC ACID 500 MG TABLET GT SCH (09:06)
[2021-07-17] MEDS: ARGININE/GLUTAMINE/CALCIUM BMB 1 EACH POWD.PACK GT SCH ×2 (09:06→16:09)
[2021-07-17] MEDS: MULTIVITAMINS,THERAGRAN 1 UDTAB TABLET GT SCH (09:06)
[2021-07-17] MEDS: PANTOPRAZOLE 40 MG TABLET.DR PO SCH (09:06)
[2021-07-17] MEDS: [UNRECOGNIZED DRUG - OTHER] XX SCH (09:07)
[2021-07-17] MEDS: CEFEPIME 2 GM in IV D5W 100 ML IV SCH (09:07)
[2021-07-17] MEDS: METOPROLOL TARTRATE 25 MG TABLET GT SCH ×2 (09:07→22:08)
[2021-07-17] MEDS: DAKINS QUARTER STRENGTH (0.125%) 480 ML BOTTLE TOP SCH (09:07)
[2021-07-17] MEDS: APIXABAN 2.5 MG TABLET GT SCH ×2 (09:10→16:12)
[2021-07-17] MEDS: LEVOTHYROXINE SODIUM 88 MCG TABLET GT SCH (09:11)
[2021-07-17] MEDS: JEVITY 1.2 CAL 1,000 ML BOTTLE GT SCH (09:23)
[2021-07-17 09:49] VITALS: BP 122/55
--- NOTE | 2021-07-17 10:44 | NUR ---
WOUND CARE FOLLOW UP: [facility] WOUND VAC DRESSING CHANGE DONE FOR SACRAL STAGE 4 ULCER. WOUND CONTINUES TO SHOW RED GRANULATION TISSUE WITH BONE PRESENT. SKIN PREP AND VAC DRAPE APPLIED TO PERIWOUND AREAS, 2 PIECES OF GRANUFOAM APPLIED TO WOUND. VAC AT 125mmHg CONTINUOUS SETTING. BRIDGING TECHNIQUE USED. PT TOLERATED WELL. DIFFICULTY NOTED IN ACHIEVING A GOOD SEAL DUE TO ALMOST CONSTANT STOOLING AND MOISTURE AT PERIANAL AREA. SEAL WAS ACHIEVED. DISCUSSED SKIN PROTECTION WITH NURSING STAFF. PT IS ON [facility]. IN AGREEMENT WITH PLAN OF CARE. Addendum: 07/17/21 at 1047 by TONO CHATTERJEE WNDNU Amended: Links added.
--- NOTE | 2021-07-17 11:59 | NUR ---
MS RN NOTES COVID-19 RAPID ANTIGEN TEST DONE AND RESULTED. PATIENT IS NEGATIVE.
[2021-07-17] MEDS: MEROPENEM 500 MG in IV NS 0.9% 50 ML IV SCH ×2 (13:15→20:07)
[2021-07-17 16:40] VITALS: BP 110/56
--- NOTE | 2021-07-17 18:52 | NUR ---
MS RN CLOSING NOTE PATIENT REMAINS IN BED, AWAKE, NON-VERBAL. PT IS ON 2L OF O2 VIA NC SHOWING NO S/SX OF RESP DISTRESS. BREATHING EVEN AND UNLABORED. IV ACCESS ON LEFT UPPER ARM ML RUNNING 1/2 NS @ 75 MLS/HR. G-TUBE INTACT AND PATENT RUNNING JEVITY 1.2 AT 55CC/HR. ALL NEEDS ATTENDED DURING THE DAY. PATIENT KEPT CLEAN AND DRY. ALL SAFETY MEASURES IN PLACE. HOB ELEVATED. CALL LIGHT WITHIN REACH. BED LOCKED AND IN LOWEST POSITION. SIDE RAILS UP. WILL ENDORSE TO CRAP GAME BOX PERSON NURSE FOR COLTEN.
--- NOTE | 2021-07-17 19:13 | NUR ---
MS RN OPENING NOTE PATIENT IN BED, AWAKE, NON-VERBAL. PT IS ON 2L OF O2 VIA NC SHOWING NO S/SX OF RESP DISTRESS. BREATHING EVEN AND UNLABORED. IV ACCESS ON LEFT UPPER ARM ML RUNNING 1/2 NS @ 75 MLS/HR. G-TUBE INTACT AND PATENT RUNNING JEVITY 1.2 AT 55CC/HR. ALL NEEDS ATTENDED AT THIS TIME. PATIENT KEPT CLEAN AND DRY. ALL SAFETY MEASURES IN PLACE. HOB ELEVATED. CALL LIGHT WITHIN REACH. BED LOCKED AND IN LOWEST POSITION. SIDE RAILS UP. WILL CONTINUE TO MONITOR.
[2021-07-17 22:58] VITALS: BP 113/59
[2021-07-18 00:11] VITALS: BP 113/59
[2021-07-18] MEDS: MEROPENEM 500 MG in IV NS 0.9% 50 ML IV SCH ×3 (04:05→21:50)
--- NOTE | 2021-07-18 06:47 | NUR ---
MS RN CLOSING NOTE PATIENT IN BED, AWAKE, A/O X1 CONFUSED MUMBLES WORDS. PT IS ON 2L OF O2 VIA NC SHOWING NO S/SX OF RESP DISTRESS. BREATHING EVEN AND UNLABORED. IV ACCESS ON LEFT UPPER ARM ML RUNNING 1/2 NS @ 75 MLS/HR. G-TUBE INTACT AND PATENT RUNNING JEVITY 1.2 AT 55CC/HR. ALL NEEDS ATTENDED AT THIS TIME. PATIENT KEPT CLEAN AND DRY AT ALL TIMES. ALL SAFETY MEASURES IN PLACE. HOB ELEVATED. CALL LIGHT WITHIN REACH. BED LOCKED AND IN LOWEST POSITION. SIDE RAILS UP. WILL ENDORSE CARE TO DAY SHIFT.
[2021-07-18 08:00] VITALS: BP 122/64
--- NOTE | 2021-07-18 09:11 | NUR ---
WOUND CARE FOLLOW UP: [facility] WOUND VAC FUNCTIONING WELL TO SACRAL STAGE 4 PRESSURE ULCER WITH SMALL AMOUNT OF PINK DRAINAGE IN CANISTER. VAC AT 125mmHg CONTINUOUS SETTING. DISCUSSED SKIN PROTECTION WITH NURSING STAFF. MD IN AGREEMENT WITH PLAN OF CARE.
[2021-07-18 09:14] LABS: CALCIUM, SERUM 9.1 mg/dL (8.5-10.1); CARBON DIOXIDE 28 mmol/L (21-32); CHLORIDE 104 mmol/L (98-107); CREATININE 0.5 mg/dL (0.6-1.3); GLUCOSE 111 mg/dL (74-106); POTASSIUM 4.5 mmol/L (3.5-5.1); SODIUM SERUM 138 mmol/L (136-145); UREA NITROGEN, BLOOD 20 mg/dL (7-18)
[2021-07-18] MEDS: LEVOTHYROXINE SODIUM 88 MCG TABLET GT SCH (09:54)
[2021-07-18] MEDS: PANTOPRAZOLE 40 MG TABLET.DR PO SCH (09:54)
[2021-07-18] MEDS: [UNRECOGNIZED DRUG - OTHER] XX SCH (09:55)
[2021-07-18] MEDS: ASCORBIC ACID 500 MG TABLET GT SCH (09:55)
[2021-07-18] MEDS: PROSOURCE / PROSTAT (PYXIS) 30 ML UDC GT SCH ×2 (09:55→18:19)
[2021-07-18] MEDS: ARGININE/GLUTAMINE/CALCIUM BMB 1 EACH POWD.PACK GT SCH ×2 (09:55→18:19)
[2021-07-18] MEDS: METOPROLOL TARTRATE 25 MG TABLET GT SCH ×2 (09:55→21:00)
[2021-07-18] MEDS: ACETAMINOPHEN 650 MG/20.3 ML UDC GT SCH (09:56)
[2021-07-18] MEDS: ZINC SULFATE 220 MG CAPSULE PO SCH (09:56)
[2021-07-18] MEDS: MULTIVITAMINS,THERAGRAN 1 UDTAB TABLET GT SCH (09:56)
[2021-07-18] MEDS: FERROUS SULFATE UDC 300 MG/5 ML UDC GT SCH (09:56)
[2021-07-18] MEDS: APIXABAN 2.5 MG TABLET GT SCH ×2 (09:57→18:24)
[2021-07-18] MEDS: IV 1/2NS 1000 ML 1,000 ML IV PRN (12:34)
[2021-07-18 16:00] VITALS: BP 108/61
[2021-07-18] MEDS: DAKINS QUARTER STRENGTH (0.125%) 480 ML BOTTLE TOP SCH (18:19)
--- NOTE | 2021-07-18 19:35 | NUR ---
RN NOTE PT RECEIVED IN BED. PT IS ON 2L OF O2 VIA NC SHOWING NO S/S OF RESP DISTRESS. BREATHING EVEN AND UNLABORED. PT IS NON-VERBAL. IV ACCESS NOTED ON LEFT UPPER ARM ML. LINE FLUSHED, PATENT, AND INTACT WITH NO SIGNS OF INFILTRATION. 1/2 NS RUNNING AT 75 CC/HR. G-TUBE INTACT AND PATENT RUNNING JEVITY 1.2 AT 55CC/HR. TOLERATING WELL. ALL SAFETY MEASURES IMPLEMENTED. HOB ELEVATED. BED LOCKED AND IN LOWEST POSITION. SIDE RAILS UP. WILL CONTINUE TO MONITOR AND ASSESS FOR ANY CHANGES DURING SHIFT.
[2021-07-18 20:00] VITALS: BP 97/54
[2021-07-19 04:00] VITALS: BP 100/53
[2021-07-19] MEDS: IV 1/2NS 1000 ML 1,000 ML IV PRN (04:47)
[2021-07-19] MEDS: MEROPENEM 500 MG in IV NS 0.9% 50 ML IV SCH ×2 (04:47→12:30)
--- NOTE | 2021-07-19 06:50 | NUR ---
WOUND CARE FOLLOW UP: DRESSING CHANGE DONE FOR SACRAL STAGE 4 PRESSURE ULCER. WOUND CONTINUES TO SHOW RED GRANULATION TISSUE BUT SOME MACERATION NOTED DISTALLY. BONE VISIBLE AND PALPABLE. PT HAS BEEN NOTED TO BE HAVING LOOSE STOOLS, WHICH MAKES MAINTAINING VAC SEAL DIFFICULT. DISCUSSED WITH SURGICAL TEAM CURRENTLY ON CASE. WOUND VAC HELD AT THIS TIME FOR FURTHER EVALUATION BY SURGICAL TEAM. WOUND CLEANSED WITH DAKINS AND GENTLY PACKED WITH DAKINS MOISTENED KERLIX, COVERED WITH OPTIFOAM BORDER DRESSING PER SURGICAL TEAM. DISCUSSED SKIN PROTECTION AND WOUND CARE WITH NURSING STAFF. [facility] IN AGREEMENT WITH PLAN OF CARE. Addendum: 07/19/21 at 0655 by TONO CHATTERJEE WNDNU WOUND VAC CANISTER DISCARDED WITH 75cc PINK DRAINAGE.
--- NOTE | 2021-07-19 06:59 | NUR ---
RN NOTE NO CHANGES IN PT CONDITION DURING SHIFT. PT IS ON 2L OF O2 VIA NC SHOWING NO S/S OF RESP DISTRESS. BREATHING EVEN AND UNLABORED. IV ACCESS ON LEFT UPPER ARM ML. LINE FLUSHED, PATENT, AND INTACT WITH NO SIGNS OF INFILTRATION. ALL SAFETY MEASURES IMPLEMENTED. PT KEPT CLEAN AND COMFORTABLE. ALL DUE MEDS GIVEN ORDERED. HOB ELEVATED. CALL LIGHT WITHIN REACH. BED LOCKED AND IN LOWEST POSITION. SIDE RAILS UP. WILL ENDORSE TO MORNING SHIFT RN FOR COLTEN.
[2021-07-19] MEDS: JEVITY 1.2 CAL 1,000 ML BOTTLE GT SCH (07:09)
--- NOTE | 2021-07-19 07:25 | NUR ---
RN OPENING NOTES RECEIVED PATIENT IN BED, AWAKE, EYES OPEN, NON-VERBAL. NO SIGNS OF ACUTE DISTRESS NOTED. ON O2 @2LPM VIA N/C, NO SOB NOTED, BREATHING EVEN AND UNLABORED. WITH IV ACCESS ON JOSE MIDLINE, INTACT WITH 1/2 NS @75CC/HR RUNNING. WITH F/C INTACT, DRAINING CLEAR YELLOW URINE. G-TUBE INTACT AND PATENT, WITH GT FEEDING OF JEVITY @55ML/HR, TOLERATED WELL. HOB ELEVATED AT ALL TIMES. SAFETY MEASURES IN PLACE. BED IN LOWEST LOCKED POSITION, SR UP, CALL LIGHT PLACED WITHIN EASY REACH. WILL CONTINUE TO MONITOR.
[2021-07-19 07:39] LABS: CALCIUM, SERUM 9.1 mg/dL (8.5-10.1); CARBON DIOXIDE 30 mmol/L (21-32); CHLORIDE 103 mmol/L (98-107); CREATININE 0.5 mg/dL (0.6-1.3); GLUCOSE 88 mg/dL (74-106); SODIUM SERUM 139 mmol/L (136-145); UREA NITROGEN, BLOOD 24 mg/dL (7-18)
[2021-07-19 08:00] VITALS: BP 128/54
[2021-07-19] MEDS: ACETAMINOPHEN 650 MG/20.3 ML UDC GT SCH (08:47)
[2021-07-19] MEDS: PANTOPRAZOLE 40 MG TABLET.DR PO SCH (08:47)
[2021-07-19] MEDS: LEVOTHYROXINE SODIUM 88 MCG TABLET GT SCH (08:47)
[2021-07-19] MEDS: MULTIVITAMINS,THERAGRAN 1 UDTAB TABLET GT SCH (08:47)
[2021-07-19] MEDS: ZINC SULFATE 220 MG CAPSULE PO SCH (08:47)
[2021-07-19] MEDS: FERROUS SULFATE UDC 300 MG/5 ML UDC GT SCH (08:47)
[2021-07-19] MEDS: ASCORBIC ACID 500 MG TABLET GT SCH (08:47)
[2021-07-19] MEDS: METOPROLOL TARTRATE 25 MG TABLET GT SCH (08:49)
[2021-07-19] MEDS: PROSOURCE / PROSTAT (PYXIS) 30 ML UDC GT SCH (08:49)
[2021-07-19] MEDS: [UNRECOGNIZED DRUG - OTHER] XX SCH (08:50)
[2021-07-19] MEDS: APIXABAN 2.5 MG TABLET GT SCH (08:51)
[2021-07-19] MEDS: ARGININE/GLUTAMINE/CALCIUM BMB 1 EACH POWD.PACK GT SCH (08:52)
[2021-07-19] MEDS: DAKINS QUARTER STRENGTH (0.125%) 480 ML BOTTLE TOP SCH (08:53)
[2021-07-19] MEDS ORDERED: MERO500P IV (13:09)
[2021-07-19 16:00] VITALS: BP 108/68
--- NOTE | 2021-07-19 17:35 | NUR ---
PARKING INSPECTOR NOTES PATIENT DISCHARGED TO [facility] IN STABLE CONDITION. PATIENT REMAINS TO BE AWAKE, A/O X1, NON-VERBAL. VITAL SIGNS TAKEN, STABLE AND RECORDED. IV ACCESS ON LEFT UPPER ARM KEPT FOR CONTINUATION OF IV ABX ORDER, INTACT AND PATENT. F/C INTACT DRAINING YELLOW COLORED URINE. TREATMENT DONE TO SACRAL WOUND AND RIGHT LATERAL ANKLE PRIOR TO DISCHARGE. PHOTOS TAKEN, PLACED IN CHART. EXITCARE FOLDER GIVEN TO AMBULANCE. REPORT GIVEN TO [facility] JOYCE PURDY. PATIENT'S SON ALONDRA AT BEDSIDE. PATIENT PICKED UP BY [facility] @1730 VIA GURNEY, IN STABLE CONDITION. CN AWARE OF DISCHARGE.
== END 2021-07-19 17:57 | DRG 871 ==
LOC: ER 01:27 → EDBD 01:27 → TELE1 04:43 → MEDSG1 07-08 07:58
PROVIDERS: ADMIT Nurse Practitioner Acute Care; ATTEND Student in an Organized Health Care Education/Training Program
PROC: 05HC33Z Insertion of Infusion Device into Left Basilic Vein, Percutaneous Approach (ICD-10-PCS; principal; 2021-07-05)
DX: A41.9 Sepsis, unspecified organism (principal); L89.154 Pressure ulcer of sacral region, stage 4; E43 Unspecified severe protein-calorie malnutrition; G93.41 Metabolic encephalopathy; N39.0 Urinary tract infection, site not specified; D68.59 Other primary thrombophilia; I48.20 Chronic atrial fibrillation, unspecified; N17.9 Acute kidney failure, unspecified; E87.0 Hyperosmolality and hypernatremia; E03.9 Hypothyroidism, unspecified; E86.0 Dehydration; F03.90 Unspecified dementia, unspecified severity, without behavioral disturbance, psychotic disturbance, mood disturbance, and anxiety; D50.9 Iron deficiency anemia, unspecified; I10 Essential (primary) hypertension; R13.10 Dysphagia, unspecified; E88.09 Other disorders of plasma-protein metabolism, not elsewhere classified; F09 Unspecified mental disorder due to known physiological condition; L89.896 Pressure-induced deep tissue damage of other site; B96.89 Other specified bacterial agents as the cause of diseases classified elsewhere; Z79.01 Long term (current) use of anticoagulants; Z74.09 Other reduced mobility; E86.9 Volume depletion, unspecified; Z93.1 Gastrostomy status; L89.516 Pressure-induced deep tissue damage of right ankle; B96.20 Unspecified Escherichia coli [E. coli] as the cause of diseases classified elsewhere
CPT/HCPCS: 36410; 36415; 71045-TC; 80048-TC; 80076-TC; 80202-TC; 81001; 82272-TC; 82728-TC; 83540-TC; 83605-TC; 83735-TC; 83880; 84100-TC; 84484-TC; 85025-TC; 85378-TC; 85730-TC; 86140-TC; 86850-TC; 87040-TC; 87070-TC; 87081-TC; 87086-TC; 87186-TC; 92521; 92526; 92611-TC; 97110-TC; 97530-TC; A6253; A6403; C9803; G0378; J0692; J1650; J2185; J2916; J3370; J3490; J7030; J7050; J7060; U0003